=== PATIENT | male | born 1965 | race Caucasian/White ===

== ENCOUNTER 2020-05-09 10:10 | Inpatient (IN) | payer OTHER, SELFPAY ==
[~2020-05-09] VITALS: Ht 167.6 cm; Wt 81.6 kg
[2020-05-09 10:14] VITALS: BP 160/113
--- NOTE | 2020-05-09 10:35 | NUR ---
54 YO M BIB SELF C/O COUGH,SOB X 4 DAYS. DENIES FEVER, CP DENIES LOSS OF TASTE AND LOSS OF SMELL. NO OTHER SYMPTOMS REPORTED. COVID TESTED DONE YESTERTDAY WITH NEGATIVE RESULT. IN ED, AAOX4 WITH EVEN AND STEADY GAIT; LUNGS WITH COARSE BREATH SOUNDS BL; HR EVEN AND REGULAR; PATIENT STATES PAIN OF 0/10 AT THIS TIME; PATIENT POSITIONED FOR COMFORT; HOB ELEVATED; BEDRAILS UP X2; BED DOWN. ER MD MADE AWARE OF PT STATUS. PMH: DENIES NKA
--- NOTE | 2020-05-09 10:45 | NUR ---
URINE COLLECTED AT THIS TIME. HANDED TO NIMCO TAYLOR.
--- NOTE | 2020-05-09 11:16 | NUR ---
INF, RSV SWABS DONE. HANDED TO NIMCO TAYLOR.
--- NOTE | 2020-05-09 11:16 | NUR ---
AMOS BRANTLEY SWABS DONE. HANDED TO NIMCO TAYLOR.
[2020-05-09 11:18] LABS: BASOPHILS # (AUTO) 0.1 K/uL (0.00-0.22); BASOPHILS % (AUTO) 0.5 % (0.0-2.0); HEMATOCRIT 51.7 % (36-52); HEMOGLOBIN 17.5 g/dL (12.0-18.0); LYMPHOCYTES # (AUTO) 0.2 K/uL (2.0-11.5); LYMPHOCYTES % (AUTO) 1.2 % (20.5-51.1); MEAN CORPUSCULAR HEMOGLOBIN 31 pg (27-31); MEAN CORPUSCULAR HGB CONC 34 g/dL (33-37); MEAN CORPUSCULAR VOLUME 90.6 fL (80-94); MONOCYTES # (AUTO) 0.5 K/uL (0.8-1.0); MONOCYTES % (AUTO) 2.5 % (1.7-9.3); NEUTROPHILS # (AUTO) 19.6 K/uL (1.8-7.7); NEUTROPHILS % (AUTO) 95.8 % (42.2-75.2); PLATELET COUNT (AUTO) 207 K/uL (140-450); RED CELL DISTRIBUTION WIDTH 13.4 % (11.6-13.7); WHITE BLOOD COUNT (AUTO) 20.5 K/uL (4.8-10.8)
[2020-05-09 11:33] LABS: PROTHROMBIN TIME 10.4 secs (10.8-13.4)
[2020-05-09 11:34] LABS: RSV NEGATIVE (NEGATIVE)
[2020-05-09 11:36] LABS: BILIRUBIN,URINE NEGATIVE (NEGATIVE); BLOOD, URINE 2+ (NEGATIVE); COLOR,URINE YELLOW (YELLOW); LEUKOCYTE ESTERASE ,URINE NEGATIVE (NEGATIVE); NITRITE, URINE NEGATIVE (NEGATIVE); PH,URINE 5.5 (5.0-9.0); UGLUCOSE 3+ (NEGATIVE)
[2020-05-09 11:37] LABS: ALBUMIN 2.8 g/dL (3.4-5.0); ANION GAP 23.5 (8-16); CARBON DIOXIDE 19.3 mmol/L (21-32); CREATININE 1.3 mg/dL (0.6-1.3); POTASSIUM 3.8 mmol/L (3.5-5.1); TOTAL BILIRUBIN 0.6 mg/dL (0.0-1.0)
[2020-05-09 11:49] LABS: APPEARANCE,URINE SLIGHTLY HAZY (CLEAR)
[2020-05-09 11:50] LABS: LACTATE DEHYDROGENASE 361 U/L (85-227)
[2020-05-09 11:50] LABS: COARSE GRANULAR CASTS,URINE 0-10 /LPF (None Seen); RBC,URINE 0-5 /HPF (0-5); WBC,URINE 0-5 /HPF (0-5)
[2020-05-09 12:50] LABS: C-REACTIVE PROTEIN QUANT 32.3 mg/dL (0.0-0.9)
[2020-05-09] MEDS ORDERED: POTASSIUM CHLORIDE 10 MEQ TABER PO PRN (15:45)
[2020-05-09] MEDS ORDERED: ACETAMINOPHEN 325 MG TAB PO PRN (15:45)
[2020-05-09] MEDS ORDERED: DOCUSATE SODIUM 100 MG GELCAP PO PRN (15:45)
[2020-05-09] MEDS ORDERED: HYDROcodone/APAP 7.5/325 MG 1 TAB PO PRN (15:45)
[2020-05-09] MEDS ORDERED: ONDANSETRON 4 MG/2 ML VIAL IM/IVP PRN (15:45)
[2020-05-09] MEDS ORDERED: ALBUTEROL HFA MDI 90 MCG/ACTUATION 8 GM INH PRN (15:45)
[2020-05-09] MEDS ORDERED: cefTRIAXone 1,000 MG VIAL ONE (16:06)
[2020-05-09] MEDS: NACL 0.9% 1,000 ML IV SCH ×2 (16:19→23:24)
--- NOTE | 2020-05-09 19:12 | NUR ---
REPORT GIVEN TO SHANNAN AGGARWAL. TRANSFER OF CARE AT THIS TIME.
--- NOTE | 2020-05-09 19:15 | NUR ---
RECEIVED PATIENT AWAKE, AND ALERT WITHOUT COMPLAINTS. RESPIRATIONS ARE REGULAR AND UNLABORED.
--- NOTE | 2020-05-09 21:45 | NUR ---
REPORT TO PATRICIA, RN
--- NOTE | 2020-05-09 22:00 | NUR ---
Patient will be admitted to care of PATRICIA. Will go to room 106. Belongings list completed. Report to PATRICIA, RN
--- NOTE | 2020-05-09 22:05 | NUR ---
TO 106 VIA KRISTOPHER CARTER CM. DENIES C/O AT THIS TIME
[2020-05-09 22:10] VITALS: BP 147/97
--- NOTE | 2020-05-09 22:10 | NUR ---
ADMITTED A 54M FROM ER. CAME BY RAUL WITH O2 4L NC., SAT 95%, AWAKE , ALERT AND ORIENTED X4. ON TELE MONITOR -ST. NO C/O ANY DISCOMFORT NOR PAIN NOTED. NO SOB NOTED ALSO. HS HL ON THE RT FA G#22. SKIN INTACT. PLAN OF CARE DISCUSSED AND VERBALIZED UNDERSTANDING. FREQ ROUNDS. NEEDED. BED ON LOW POSITION. SIDE RAILS UP X2. CALL LIGHT AND URINAL WITHIN EASY REACH. WILL FOLLOW UP ADMITTING ORDERS AND CONTINUE TO MONITOR PT.
--- NOTE | 2020-05-09 23:52 | NUR ---
CALLED TO BEDSIDE DUE TO PT DESATURATING. PT SEEN AND ASSESSED. FOUND PT ON 5L NASAL CANNULA WIRH SPO2 OF 83%. SWITCHED TO OXYMIZER 6L WITH SPO2 OF 90%. ASSISTED PT INTO PRONE POSITION. PT IS TOLERATING WELL. WILL CONTINUE TO MONITOR PT.
[2020-05-10] VITALS (9 sets, daily range): BP systolic 96–146; BP diastolic 49–95
--- NOTE | 2020-05-10 00:30 | NUR ---
CHECKED ON PT. LYING PRONED WITH O2 SAT 91 %. WILL CONTINUE TO MONITOR.
--- NOTE | 2020-05-10 02:30 | NUR ---
CHECKED ON PT. ASLEEP. O2 SAT 89% - 90%. NO SOB NOTED.
--- NOTE | 2020-05-10 04:00 | NUR ---
PT IS SLEEP. NO RESPIRATORY DISTRESS NOTED. O2 SAT 91%.
--- NOTE | 2020-05-10 06:00 | NUR ---
PT IS LYING ON HIS BACK WITH O2 STILL 6L OXYMIZER. O2 SAT 92%.
--- NOTE | 2020-05-10 07:30 | NUR ---
ENDORSED PT IN STABLE CONDITION TO AM NURSE.
--- NOTE | 2020-05-10 07:31 | NUR ---
RECEIVED ENDORSEMENT FROM RETAIL AGENT, AWAKE, ALERT, ORIENTEDX3, IN PRONE POSITION, WITH O2 AT 6L/MIN VIA OXYMIZER, NOT IN DISTRESS NOTED. WITH ONGOING IV FLUID WITH 0.9%NS AT 60ML/HOUR INFUSING AT LEFT FOREARM G 22 IV CANNULA NOTED. SAFETY MEASURES IN PLACE AND CONTINUE MONITOR
[2020-05-10 07:43] LABS: ALBUMIN 2.6 g/dL (3.4-5.0); ANION GAP 29.6 (8-16); CARBON DIOXIDE 11.6 mmol/L (21-32); CREATININE 1.3 mg/dL (0.6-1.3); POTASSIUM 3.2 mmol/L (3.5-5.1); TOTAL BILIRUBIN 0.5 mg/dL (0.0-1.0)
--- NOTE | 2020-05-10 08:41 | NUR ---
PATIENT HAS BEEN SCREENED AND CATEGORIZED MODERATE NUTRITION RISK. PATIENT WILL BE SEEN WITHIN 3-5 DAYS OF ADMISSION. 05/12/20 05/14/[address]
[2020-05-10] MEDS: AZITHROMYCIN 250 MG TAB PO SCH (09:40)
[2020-05-10] MEDS: ZINC SULF 220 MG CAP PO SCH (09:40)
[2020-05-10] MEDS: ASCORBIC ACID 500 MG TAB PO SCH (09:40)
--- NOTE | 2020-05-10 09:48 | NUR ---
FULLY AWAKE AND ALERT, DUE MEDICATION GIVEN
--- NOTE | 2020-05-10 10:52 | NUR ---
FULLY AWAKE AND ALERT, NOT IN DISTRESS NOTED
[2020-05-10] MEDS ORDERED: NACL 0.9% 1,000 ML IV SCH (11:56)
--- NOTE | 2020-05-10 12:28 | NUR ---
SITTING BESIDE THE BED, VITAL SIGNA TAKEN AND RECORDED, NOT IN DISTRESS NOTED.
--- NOTE | 2020-05-10 14:28 | NUR ---
ASLEEP ON RIGHT SIDE LYING POSITION, NOT IN DISTRESS NOTED
--- NOTE | 2020-05-10 16:16 | NUR ---
SOCIAL WORK NOTE: Patient's Orientation Unable To Assess Information Provided By DESTINY BARBOSA - Comments SW WAS UNABLE TO MEET PATIENT AT BEDSIDE DUE TO MEDICAL CONDITION. SW COMPLETED ASSESSMENT WITH PATIENT'S . Community Liaison, Realtionship and Phone Number DESTINY GOODMAN [phone] Healthcare Power of Brine Room Laborer No Does Patient Have a POLST No Identifying Problems No Social Work Triggers Is A Social Work Consult Needed No Mandate Report Filed No Explanation Of Identifying Problems PATIENT IS A 54-YEAR-OLD MALE ADMITTED FOR SUSPECTED COVID, PNA, AND SEVERE HYPOXIA. PATIENT HAS NO HISTORY OF PMHX. PATIENT'S REPORTED THAT PATIENT HAS NO HISTORY OF MENTAL HEALTH OR SUBSTANCE ABUSE. Admitted From Home Pre-Admission Level Of Functioning Status Independent/Ambulatory Prior Resources/Services Used In Last 12 Months No Prior Resources Used Prior DME No Prior DME Used Dialysis Comments N/A Living Situation Lives With Family House Patient Had Caregiver No Home Support No Caregiver Issues Financial Issues No Known Financial Issue Referral To The Financial Counselor Needed No Factors/Needs No D/C Needs Identified Pt/Rep Participated In Discharge Plan Yes Patient/Family Agress With Discharge Plan Yes Discharge Plan Comments TENTATIVE DISCHARGE PLAN IS FOR PATIENT TO RETURN HOME. DC Plan Status Initiated
--- NOTE | 2020-05-10 17:09 | NUR ---
APPARENTLY O2SAT AT 70% AT 10L/MIN VIA OXYMIZER, RT INFORMED TO CHANGED AT NON REBREATHER MASK. PLACED ON PRONE POSITION, CONTINUE MONITOR
--- NOTE | 2020-05-10 18:03 | NUR ---
STILL DESATING AT 75-77%, DECREASED LOC NOTED, DR. BAY AND DR. RODRÍGUEZ [facility] INFORMED THRU TEXT MESSAGES.
--- NOTE | 2020-05-10 18:18 | NUR ---
PATIENT [id number]%, DECREASED LOC NOTED RESPONSIVE BY SHAKING. DR. RODRÍGUEZ CONTACTED, MADE AWARE WITH PATIENT STATUS, ACCORDING TO HIM IF WE DON'T HAVE AVAILABLE HIGH FLOW, ELECTIVE INTUBATION MUST DONE. RT HANNA AND SEO ASSOCIATE MS JANSEN MADE AWARE.
--- NOTE | 2020-05-10 18:22 | NUR ---
CRASH AT BEDSIDE, PATIENT DECREASED LOC NOTED. RT STARTED FOR HIGH FLOW METER AT 100%.
--- NOTE | 2020-05-10 19:05 | NUR ---
TRANSFERRED TO ROOM 130 A, ICU EXTENSION Addendum: 05/10/20 at 1951 by Shravan Rodriguez RN STILL O2SAT- 80% AT HIGH FLOW METER 100%
[2020-05-10] MEDS: PROPOFOL 1000 MG/100 ML PREMIX 100 ML IV PRN (19:45)
--- NOTE | 2020-05-10 19:45 | NUR ---
PT TRANSFERRED TO ICU OVERFLOW FROM [facility] @ THIS TIME. DR LEONARD AT BEDSIDE PERFORMING ORAL INTUBATION WITH RT. PT SEDATED. WILL FOLLOW-UP.
--- NOTE | 2020-05-10 19:45 | NUR ---
ENDORSED TO GLYCERIN SUPERVISOR FOR CONTINUITY OF CARE.
--- NOTE | 2020-05-10 19:50 | NUR ---
NEW ORDERS FOR SEDATION MEDS OBTAINED AND IMPLEMENTED, FROM DR MAGALLANES, AT THIS TIME. WILL FOLLOW UP
--- NOTE | 2020-05-10 19:50 | NUR ---
PT PLACED ON MECH VENT ACPC MODE: FIO2 100%, RATE 22, PEEP 12. PT TOLERATED INTUBATION WELL.
[2020-05-10] MEDS ORDERED: ETOMIDATE 20 MG/10 ML VIAL IVP SCH (19:55)
[2020-05-10] MEDS ORDERED: ROCURONIUM 50 MG/5 ML VIAL IV SCH (19:55)
[2020-05-10] MEDS ORDERED: PROPOFOL 1000 MG/100 ML PREMIX 100 ML IV ONE (20:04)
[2020-05-10] MEDS ORDERED: MORPHINE SULFATE 10 MG/ML VIAL ONE (23:48)
[2020-05-11] VITALS (26 sets, daily range): BP systolic 77–109; BP diastolic 42–64
--- NOTE | 2020-05-11 | NUR ---
OGT PLACED AT THIS TIME. + AIR BOLUS NOTED. CXR CONFIRMS PLACEMENT.
[2020-05-11] MEDS: MORPHINE SULFATE 50 MG in NACL 0.9% 45 ML IV PRN ×2 (00:11→20:52)
--- NOTE | 2020-05-11 02:00 | NUR ---
REPOSITIONED WITH PRESSURE AREAS OFFLOADED. FLACC 0. VAP ORAL CARE PROVIDED. SAFETY PRECAUTIONS IN PLACE WITH BED LOW AND LOCKED. WILL CONT TO MONITOR.
[2020-05-11] MEDS: PROPOFOL 1000 MG/100 ML PREMIX 100 ML IV PRN ×4 (02:06→22:55)
[2020-05-11] MEDS ORDERED: CRUSHER, PILL MC ONE (02:48)
[2020-05-11] MEDS ORDERED: MORPHINE SULFATE 10 MG/ML VIAL ONE ×2 (06:24→20:04)
[2020-05-11 06:53] LABS: HEMOGLOBIN 15.4 g/dL (12.0-18.0); MEAN CORPUSCULAR HEMOGLOBIN 31 pg (27-31); MEAN CORPUSCULAR HGB CONC 33 g/dL (33-37); MEAN CORPUSCULAR VOLUME 93.1 fL (80-94); PLATELET COUNT (AUTO) 292 K/uL (140-450); RED BLOOD CELL COUNT(AUTO) 5.05 MIL/uL (4.20-6.10); RED CELL DISTRIBUTION WIDTH 14.1 % (11.6-13.7)
--- NOTE | 2020-05-11 07:15 | NUR ---
PT REPORT GIVEN TO DAYSHIFT NURSE AT THIS TIME, AT WINDOW, FOR CONTINUITY OF CARE.
[2020-05-11 07:45] LABS: ALBUMIN 2.1 g/dL (3.4-5.0); ANION GAP 24.1 (8-16); CARBON DIOXIDE 14.5 mmol/L (21-32); CREATININE 3.7 mg/dL (0.6-1.3); POTASSIUM 3.6 mmol/L (3.5-5.1); TOTAL BILIRUBIN 0.8 mg/dL (0.0-1.0)
--- NOTE | 2020-05-11 07:55 | NUR ---
FNS CONSULT FOR TUBE FEEDING RECEIVED ON 05/11/20 @7:30 AM. PATIENT IS RESCREENED AND NUTRITION RISK CRITERIA IS NOW CHANGED TO HIGH RISK. RD WILL ASSESS PT TODAY 05/11/20.
--- NOTE | 2020-05-11 08:00 | NUR ---
RECEIVED PT REPORT FROM NIGHTSHIFT NURSE. PT SEDATED TO RASS -3. PUPILS 3MM, PERRL. ETT TO VENT. A/C VC FIO2: 100%, TV: 450, RATE: 20, PEEP: 10. LUNGS DIMINISHED UPPER AND LOWER BILATERALLY. S1S2 NOTED UPON AUSCULTATION. OG-TUBE IN PLACE, RESIDUAL: 0ML. BOWEL SOUNDS ACTIVE IN ALL 4 QUADRANTS. ABD SOFT, NON-DISTENDED. ARGUELLO DRAINING TO GRAVITY, CLEAR/YELLOW-URINE NOTED. RT FA PERIPHERAL IV INFUSING MORPHINE 4MG/HR (4ML/HR) AND PROPOFOL (16.17ML/HR). LT AC PERIPHERAL IV SALINE LOCK. SKIN WARM, DRY AND INTACT. SAFETY PRECAUTIONS IN PLACE, BED LOW AND LOCKED, SIDE RAILS UP, HOB @ 30 DEGREES. WILL CONT TO MONITOR CLOSELY.
[2020-05-11 08:07] LABS: T4 (THYROXINE) 6.7 ug/dL (4.5-12.0)
[2020-05-11 08:29] LABS: WHITE BLOOD COUNT (AUTO) 29.2 K/uL (4.8-10.8)
[2020-05-11 08:30] LABS: LYMPHOCYTES % (MANUAL) 1 % (20-46); MONOCYTES % (MANUAL) 2 % (5-12)
--- NOTE | 2020-05-11 08:35 | NUR ---
05/11/20 RD F/U COMPLETED PLEASE REFER TO NUTRITION PROGRESS NOTES UNDER CARE ACTIVITY FOR ESTIMATED NUTRITIONAL NEEDS. RD RECOMMENDATIONS: 1. CONTINUE PUREE DIET TOLERATED 2. CONTINUE ENSURE MAX TID 3. RECOMMEND VITAMIN C AND ZINC SUPPLEMENTATION FOR WOUND HEALING 4. PROVIDE ASSISTANCE WITH MEALS 5. RD TO FOLLOW-UP 2-3 DAYS, HIGH RISK JOSE NEWTON MBA, IVORY Addendum: 05/11/20 at [address] NOTE CANCELLED. ABOVE NOTE IS FOR ANOTHER PATIENT. NEED TO BE DELETED. THIS PATIENT CHELSEY SOTO WILL BE REASSESSED BY RD FOR TUBE FEEDING TODAY 05/11/20
--- NOTE | 2020-05-11 08:45 | NUR ---
RECEIVE CRITICAL LAB FOR GLUCOSE 722, BUN 74, CR 3.7, DR MAGALLANES NOTIFIED AND PER DR MAGALLANES, HE WILL TAKE A LOOK AND INPUT ORDERS HIMSELF. WBC 29.2, DR GOODMAN WAS NOTIFIED AND PER DR GOODMAN, HE WILL COME TO ROUND ON PATIENT AND INPUT ORDER HIMSELF.
[2020-05-11] MEDS: NACL 0.9% 1,000 ML IV SCH ×2 (08:50→14:52)
[2020-05-11] MEDS ORDERED: NACL 0.9% 2,000 ML IV SCH (08:54)
[2020-05-11] MEDS: ASCORBIC ACID 500 MG TAB PO SCH (09:00)
[2020-05-11] MEDS: ZINC SULF 220 MG CAP PO SCH (09:00)
[2020-05-11] MEDS: AZITHROMYCIN 250 MG TAB PO SCH (09:00)
[2020-05-11 09:20] LABS: MAGNESIUM 2.9 mg/dL (1.8-2.4); PHOSPHORUS 5.9 mg/dL (2.5-4.9)
[2020-05-11] MEDS ORDERED: INSULIN LISPRO SLIDING SCALE 100 UNITS/ML VIAL SUBQ PRN (10:35)
[2020-05-11] MEDS ORDERED: DEXTROSE 50% 50 ML SYR IVP PRN ×2 (10:35→14:30)
[2020-05-11] MEDS ORDERED: BLOOD GLUCOSE MONITORING 1 DEV DEV FS SCH (12:00)
--- NOTE | 2020-05-11 12:00 | NUR ---
PT HAD A 100.9 FEVER, COOLING MEASURES IN PLACE, REMOVED BLANKET AND ICE PACKS APPLIED. WILL CONTINUE TO MONITOR.
--- NOTE | 2020-05-11 12:30 | NUR ---
PTS TEMP IS 99.1, WILL CONTINUE COOLING MEASURES AND WILL CONTINUE TO MONITOR CLOSELY.
--- NOTE | 2020-05-11 13:18 | NUR ---
05/11/20 RD INITIAL ASSESSMENT COMPLETED PLEASE REFER TO NUTRITION ASSESSMENT UNDER CARE ACTIVITY FOR ESTIMATED NUTRITIONAL NEEDS. 1.RECOMMEND GLUCERNA 1.2 @ 65 ML/HR X 24 HR. START AT 10 ML/HR, INCREASE BY 10 Q4H -THIS WILL PROVIDE 1560 ML OF VOLUME, 1872 KCAL AND 93 GM OF PROTEIN, MEETING 100% OF ESTIMATED KCAL AND PROTEIN NEEDS. 2. RECOMMEND FREE WATER FLUSH OF [address] TO FOLLOW-UP 2-3 DAYS, HIGH RISK BILL HA RD
[2020-05-11] MEDS: BLOOD GLUCOSE MONITORING 1 DEV DEV FS SCH ×9 (14:30→23:04)
[2020-05-11] MEDS ORDERED: POTASSIUM CHLORIDE 40 MEQ, LIDOCAINE MPF 1% 25 MG in NACL 0.9% 250 ML IV PRN ×6 (14:30)
[2020-05-11] MEDS ORDERED: DEXT 5% / NACL 0.45% 1,000 ML IV SCH (14:30)
[2020-05-11] MEDS ORDERED: INSULIN REGULAR, HUMAN 100 UNIT/ML VIAL IVP SCH (14:33)
--- NOTE | 2020-05-11 15:09 | NUR ---
COVID RESULTS RECEIVED FROM LAB. RESULTS= POSITIVE.
[2020-05-11] MEDS: INSULIN REGULAR, HUMAN 100 UNIT in NACL 0.9% 100 ML IV SCH ×4 (15:48→23:04)
--- NOTE | 2020-05-11 16:00 | NUR ---
PTS LATEST TEMP, 100.1F. COOLING MEASURES STILL IN PLACE, WILL CONTINUE TO MONITOR CLOSELY.
[2020-05-11 17:42] LABS: MAGNESIUM 2.9 mg/dL (1.8-2.4)
[2020-05-11 17:43] LABS: ANION GAP 19.4 (8-16); POTASSIUM 3.4 mmol/L (3.5-5.1)
[2020-05-11 17:47] LABS: CREATININE 5.7 mg/dL (0.6-1.3)
--- NOTE | 2020-05-11 18:40 | NUR ---
DR BAY ON UNITMD OBTAINED CONSENT FROM FAMILY FOR HD CATHETER PLACEMENT. 2 RNs VERIFIED. Addendum: 05/11/20 at 2138 by Michelle Young RN RN IT WAS DR SHIRLEY ON UNIT AND OBTAINED CONSENT.
--- NOTE | 2020-05-11 19:00 | NUR ---
DR SHIRLEY AT BEDSIDE, FOR HD CATHETER PLACEMENT.
--- NOTE | 2020-05-11 19:30 | NUR ---
RECEIVED PT REPORT FROM DAYSHIFT NURSE, AT [facility], FOR CONTINUITY OF CARE. PT SEDATED TO RASS -3, PER MD ORDERS. PUPILS 3MM, PERRL. ETT TO VENT. LUNGS DIMINISHED THROUGHOUT. +S1, S2 UPON AUSCULTATION. OGT IN PLACE, PLACEMENT CONFIRMED WITH AIR BOLUS. BOWEL SOUNDS ACTIVE X4. ABD SOFT, NON-DISTENDED. ARGUELLO IN PLACE WITH CLEAR, YELLOW-URINE NOTED TO BAG. SALINE-LOCKED PERIPHERAL IV TO RFA INFUSING MORPHINE AND PROPOFOL. LT AC PERIPHERAL SALINE LOCKED IV INFUSING INSULIN DRIP, PER PROTOCOL. SKIN WARM, DRY AND INTACT. SAFETY PRECAUTIONS IN PLACE WITH BED LOW AND LOCKED. HOB >30 DEGREES. WILL CONT TO MONITOR CLOSELY.
[2020-05-11] MEDS: PIPERACILLIN/TAZOBACTAM 2.25 GM in DEXTROSE 5% 50 ML IV SCH (20:28)
[2020-05-11 21:07] LABS: MAGNESIUM 2.9 mg/dL (1.8-2.4); PHOSPHORUS 4.9 mg/dL (2.5-4.9)
[2020-05-11 21:09] LABS: ANION GAP 18.9 (8-16); CARBON DIOXIDE 17.6 mmol/L (21-32); POTASSIUM 3.5 mmol/L (3.5-5.1)
[2020-05-11 21:12] LABS: CREATININE 6.1 mg/dL (0.6-1.3)
[2020-05-12] VITALS (32 sets, daily range): BP systolic 86–126; BP diastolic 46–84
[2020-05-12] MEDS: MORPHINE SULFATE 50 MG in NACL 0.9% 45 ML IV PRN ×2 (00:09→18:41)
[2020-05-12] MEDS: NACL 0.9% 1,000 ML IV SCH ×4 (00:12→21:14)
[2020-05-12] MEDS: BLOOD GLUCOSE MONITORING 1 DEV DEV FS SCH ×11 (00:30→21:15)
[2020-05-12 00:56] LABS: ANION GAP 19.1 (8-16); CARBON DIOXIDE 21.1 mmol/L (21-32); POTASSIUM 3.2 mmol/L (3.5-5.1)
[2020-05-12 00:57] LABS: MAGNESIUM 2.3 mg/dL (1.8-2.4); PHOSPHORUS 4.6 mg/dL (2.5-4.9)
[2020-05-12] MEDS: NOREPINEPHRINE 4 MG in DEXTROSE 5% 250 ML IV PRN ×2 (01:37→19:01)
[2020-05-12 02:17] LABS: CREATININE 4.4 mg/dL (0.6-1.3)
--- NOTE | 2020-05-12 03:53 | NUR ---
CALLED [facility] R/T POTASSIUM 3.2. CURRENT ORDER FOR POTASSIUM WITH XYLOCAINE UNAVAILABLE. NO ANSWER AT THIS THIS TIME. AUDIOLOGY TECHNICIAN MADE AWARE.
[2020-05-12] MEDS: PIPERACILLIN/TAZOBACTAM 2.25 GM in DEXTROSE 5% 50 ML IV SCH ×3 (04:24→20:51)
[2020-05-12 04:47] LABS: PHOSPHORUS 4.7 mg/dL (2.5-4.9)
[2020-05-12 04:54] LABS: ALBUMIN 1.7 g/dL (3.4-5.0); ANION GAP 12.1 (8-16); CARBON DIOXIDE 26.5 mmol/L (21-32); TOTAL BILIRUBIN 0.9 mg/dL (0.0-1.0)
[2020-05-12 04:58] LABS: CREATININE 4.3 mg/dL (0.6-1.3); POTASSIUM 2.6 mmol/L (3.5-5.1)
[2020-05-12] MEDS ORDERED: KCL 20 MEQ/WATER INJ PREMIX 200 ML IV ONE (05:10)
--- NOTE | 2020-05-12 07:20 | NUR ---
PT REPORT GIVEN TO DAYSHIFT RN, AT WINDOW, FOR CONTINUITY OF CARE.
[2020-05-12] MEDS ORDERED: KCL 20 MEQ/WATER INJ PREMIX 200 ML IV SCH (07:40)
--- NOTE | 2020-05-12 08:00 | NUR ---
RECEIVED PT REPORT FROM NIGHTSHIFT NURSE. PT SEDATED TO RASS -3. ETT TO VENT. A/C VC FIO2: 85%, TV: 450, RATE: 24, PEEP: 8. LUNGS DIMINISHED UPPER AND LOWER BILATERALLY. S1S2 NOTED UPON AUSCULTATION. OG-TUBE IN PLACE, RESIDUAL: 0ML. BOWEL SOUNDS ACTIVE IN ALL 4 QUADRANTS. ABD SOFT, NON-DISTENDED. ARGUELLO DRAINING TO GRAVITY, CLEAR/YELLOW-URINE NOTED. RT FA PERIPHERAL IV INFUSING MORPHINE 4MG/HR (4ML/HR) AND PROPOFOL (16.17ML/HR), LEVOPHED 3 MCG/MIN (11.25 ML/HR). LT AC PERIPHERAL IV RUNNING IVF @250ML/HR AND INSULIN 7.33 UNIT/HR. SKIN WARM, DRY AND INTACT. SAFETY PRECAUTIONS IN PLACE, BED LOW AND LOCKED, SIDE RAILS UP, HOB @ 30 DEGREES. WILL CONT TO MONITOR CLOSELY.
[2020-05-12 08:49] LABS: MAGNESIUM 2.2 mg/dL (1.8-2.4); PHOSPHORUS 5.3 mg/dL (2.5-4.9)
[2020-05-12 08:54] LABS: CARBON DIOXIDE 23.4 mmol/L (21-32); POTASSIUM 4.4 mmol/L (3.5-5.1)
[2020-05-12] MEDS: ASCORBIC ACID 500 MG TAB PO SCH (09:00)
[2020-05-12] MEDS: ZINC SULF 220 MG CAP PO SCH (09:00)
[2020-05-12] MEDS: AZITHROMYCIN 250 MG TAB PO SCH (09:00)
[2020-05-12 09:21] LABS: CREATININE 4.6 mg/dL (0.6-1.3)
--- NOTE | 2020-05-12 10:06 | NUR ---
DR ROUSE CALLED BACK REFERRING TO THE CRITICAL LABS: BUN: 72, CREAT: 4.6. AWARE, PT IS GETTING HD, AND NO NEW ORDERS AT THIS TIME.
--- NOTE | 2020-05-12 10:32 | NUR ---
DR MAGALLANES ON THE UNIT, PER , STOP INSULIN DRIP. WILL PUT NEW ORDERS IN.
[2020-05-12] MEDS: PROPOFOL 1000 MG/100 ML PREMIX 100 ML IV PRN ×2 (10:48→22:10)
--- NOTE | 2020-05-12 10:48 | NUR ---
PROVIDED 10,000 UNITS TO DIALYSIS [facility], FOR HD TO FLUSH PORTS.
--- NOTE | 2020-05-12 10:54 | NUR ---
FOLLOW UP WITH PICC PLACEMENT WITH CALL CENTER, MELVIN IS THE PICC RN FOR BRUCE TODAY. PER CALL CENTER, MELVIN WILL CALL BACK. PROVIDED A DIRECT CALL BACK PHONE NUMBER, AWAITING FOR MELVIN TO RETURN CALL.
--- NOTE | 2020-05-12 12:00 | NUR ---
PER RN WALTER, DIALYSIS: 2L OUTPUT
[2020-05-12 15:07] LABS: MAGNESIUM 1.7 mg/dL (1.8-2.4)
--- NOTE | 2020-05-12 15:15 | NUR ---
HEPARIN SUBCU HELD DUE TO PICC LINE PLACEMENT
[2020-05-12] MEDS: INSULIN LISPRO SLIDING SCALE 100 UNITS/ML VIAL SUBQ PRN ×2 (16:30→21:18)
[2020-05-12 16:35] LABS: ANION GAP 13.6 (8-16); CARBON DIOXIDE 26.7 mmol/L (21-32); CREATININE 3.9 mg/dL (0.6-1.3); POTASSIUM 3.3 mmol/L (3.5-5.1)
[2020-05-12 17:03] LABS: MAGNESIUM 1.8 mg/dL (1.8-2.4); PHOSPHORUS 4.4 mg/dL (2.5-4.9)
--- NOTE | 2020-05-12 17:27 | NUR ---
RD RECOMMENDATIONS FOR NEPRO 1.8 @ 40 ML/HR WITH FLUSH OF 130 ML Q4H
[2020-05-12] MEDS: INSULIN LANTUS 100 UNITS/ML 10 ML VIAL SUBQ SCH (18:05)
--- NOTE | 2020-05-12 19:10 | NUR ---
RECEIVED PATIENT FROM DAY SHIFT ON AC 24,450, PEEP 8,85%. VENT PLUGGED INTO RED OUTLET. BMV AT BEDSIDE. ETT SECURED. ALARMS SET. ETT SHIFTED ON ANKORFAST. NO RESPIRATORY DISTRESS NOTED. WILL CONTINUE TO MONITOR FOR CHANGES IN RESPIRATORY STATUS.
--- NOTE | 2020-05-12 19:45 | NUR ---
RECEIVED ENDORSEMENT FROM DAY SHIFT RN. PT SEDATED TO RASS -3. ETT TO VENT. A/C VC FIO2: 80%, TV: 450, RATE: 24, PEEP: 8. LUNGS DIMINISHED UPPER AND LOWER BILATERALLY. OG-TUBE IN PLACE. BOWEL SOUNDS ACTIVE IN ALL 4 QUADRANTS. ABD SOFT, NON-DISTENDED. ARGUELLO DRAINING TO GRAVITY, CLEAR/YELLOW-URINE NOTED. RT FA PERIPHERAL IV INFUSING MORPHINE, PROPOFOL, LEVOPHED. LT AC PERIPHERAL IV RUNNING IVF SKIN WARM, DRY AND INTACT. SAFETY PRECAUTIONS IN PLACE, BED LOW AND LOCKED, SIDE RAILS UP, HOB @ 30 DEGREES. WILL CONT TO MONITOR CLOSELY.
[2020-05-13] VITALS (27 sets, daily range): BP systolic 81–122; BP diastolic 51–74
[2020-05-13] MEDS: PIPERACILLIN/TAZOBACTAM 2.25 GM in DEXTROSE 5% 50 ML IV SCH ×5 (00:26→23:26)
[2020-05-13] MEDS: NACL 0.9% 1,000 ML IV SCH ×3 (06:00→21:27)
[2020-05-13] MEDS: BLOOD GLUCOSE MONITORING 1 DEV DEV FS SCH ×4 (06:35→21:09)
[2020-05-13] MEDS: INSULIN LISPRO SLIDING SCALE 100 UNITS/ML VIAL SUBQ PRN ×4 (06:36→21:13)
[2020-05-13 07:03] LABS: BASOPHILS % (AUTO) 0.2 % (0.0-2.0); HEMATOCRIT 38.1 % (36-52); HEMOGLOBIN 13.1 g/dL (12.0-18.0); LYMPHOCYTES # (AUTO) 0.2 K/uL (2.0-11.5); LYMPHOCYTES % (AUTO) 1.2 % (20.5-51.1); MEAN CORPUSCULAR HEMOGLOBIN 30 pg (27-31); MEAN CORPUSCULAR HGB CONC 34 g/dL (33-37); MEAN CORPUSCULAR VOLUME 88.4 fL (80-94); MONOCYTES # (AUTO) 0.7 K/uL (0.8-1.0); MONOCYTES % (AUTO) 4.3 % (1.7-9.3); NEUTROPHILS # (AUTO) 15.2 K/uL (1.8-7.7); NEUTROPHILS % (AUTO) 94.3 % (42.2-75.2); PLATELET COUNT (AUTO) 238 K/uL (140-450); RED BLOOD CELL COUNT(AUTO) 4.31 MIL/uL (4.20-6.10); RED CELL DISTRIBUTION WIDTH 13.7 % (11.6-13.7); WHITE BLOOD COUNT (AUTO) 16.2 K/uL (4.8-10.8)
[2020-05-13 07:37] LABS: ANION GAP 19.7 (8-16); POTASSIUM 3.7 mmol/L (3.5-5.1)
--- NOTE | 2020-05-13 07:41 | NUR ---
ENDORSED TO DAY SHIFT RN FOR CONTINUITY OF CARE
--- NOTE | 2020-05-13 07:55 | NUR ---
RECEIVED CRITICAL LAB BUN: [address] ZAZUETA. LENS GRINDER CALLED BACK, MD IS AWARE AND NO NEW ORDERS AT THIS TIME.
[2020-05-13 08:00] LABS: CREATININE 5.4 mg/dL (0.6-1.3)
--- NOTE | 2020-05-13 08:00 | NUR ---
RECEIVED PT REPORT FROM NIGHTSHIFT NURSE. PT SEDATED TO RASS -3. ETT TO VENT. A/C VC FIO2: 85%, TV: 450, RATE: 24, PEEP: 8. LUNGS DIMINISHED UPPER AND LOWER BILATERALLY. S1S2 NOTED UPON AUSCULTATION. OG-TUBE IN PLACE, RESIDUAL: 0ML. BOWEL SOUNDS ACTIVE IN ALL 4 QUADRANTS. ABD SOFT, NON-DISTENDED. ARGUELLO DRAINING TO GRAVITY, CLEAR/YELLOW-URINE NOTED. RT FA PERIPHERAL IV INFUSING MORPHINE 4MG/HR (4ML/HR) AND PROPOFOL 25 MCG/KG/MIN (11.55 ML/HR), LEVOPHED 4 MCG/MIN (15 ML/HR). LT AC PERIPHERAL IV RUNNING IVF @100ML/HR. BILATERAL ARMS HAS SCATTERED BRUISING, SKIN WARM, DRY AND INTACT. SAFETY PRECAUTIONS IN PLACE, BED LOW AND LOCKED, SIDE RAILS UP, HOB @ 30 DEGREES. WILL CONT TO MONITOR CLOSELY.
[2020-05-13] MEDS: INSULIN LANTUS 100 UNITS/ML 10 ML VIAL SUBQ SCH (09:00)
[2020-05-13] MEDS: ZINC SULF 220 MG CAP PO SCH (10:07)
[2020-05-13] MEDS: AZITHROMYCIN 250 MG TAB PO SCH (10:07)
[2020-05-13] MEDS: ASCORBIC ACID 500 MG TAB PO SCH (10:08)
--- NOTE | 2020-05-13 12:00 | NUR ---
NO S/S OF DISTRESS NOTED, SAFETY MEASURES IN PLACE WILL CONT. TO MONITOR.
[2020-05-13] MEDS: NOREPINEPHRINE 4 MG in DEXTROSE 5% 250 ML IV PRN (12:11)
--- NOTE | 2020-05-13 13:30 | NUR ---
STARTED PT ON NEPRO 1.8 @ 10ML/HR, GOAL RATE 40ML/HR. FWF: 130ML Q 4HR. >200 ML: HOLD. AND <150 RESUME FEEDING. Addendum: 05/13/20 at 2100 by Michelle Young RN RN AUSCULTATED AND RESIDUAL 0ML PRIOR TO INITIATING OG-TUBE FEEDING.
[2020-05-13] MEDS: PROPOFOL 1000 MG/100 ML PREMIX 100 ML IV PRN (14:40)
--- NOTE | 2020-05-13 16:00 | NUR ---
ROUTINE CLEANING, CHG BATH, ARGUELLO CARE, VAP ORAL CARE. SAFETY MEASURES IN PLACE, WILL CONT. TO MONITOR.
--- NOTE | 2020-05-13 19:30 | NUR ---
RECEIVED ENDORSEDMENT FROM DAY SHIFT RN. PT SEDATED TO RASS -3. ETT TO VENT. A/C VC FIO2: 85%, TV: 450, RATE: 24, PEEP: 8. LUNGS DIMINISHED UPPER AND LOWER BILATERALLY. OG-TUBE IN PLACE. BOWEL SOUNDS ACTIVE IN ALL 4 QUADRANTS. ABD SOFT, NON-DISTENDED. ARGUELLO DRAINING TO GRAVITY, CLEAR/YELLOW-URINE NOTED. RT FA PERIPHERAL IV INFUSING MORPHINE, PROPOFOL, LEVOPHED. LAC PERIPHERAL IV RUNNING IVF, SKIN WARM, DRY AND INTACT. SAFETY PRECAUTIONS IN PLACE, BED LOW AND LOCKED, SIDE RAILS UP, HOB @ 30 DEGREES. WILL CONTINUE TO MONITOR
[2020-05-13] MEDS: MORPHINE SULFATE 50 MG in NACL 0.9% 45 ML IV PRN (21:36)
[2020-05-14] VITALS (28 sets, daily range): BP systolic 92–116; BP diastolic 39–68
[2020-05-14] MEDS: PROPOFOL 1000 MG/100 ML PREMIX 100 ML IV PRN ×3 (00:06→17:22)
[2020-05-14] MEDS: PIPERACILLIN/TAZOBACTAM 2.25 GM in DEXTROSE 5% 50 ML IV SCH ×4 (05:26→23:00)
[2020-05-14] MEDS: NOREPINEPHRINE 4 MG in DEXTROSE 5% 250 ML IV PRN ×2 (05:28→22:22)
[2020-05-14 07:00] LABS: BASOPHILS # (AUTO) 0.1 K/uL (0.00-0.22); BASOPHILS % (AUTO) 1.1 % (0.0-2.0); HEMATOCRIT 44.5 % (36-52); HEMOGLOBIN 15.2 g/dL (12.0-18.0); LYMPHOCYTES # (AUTO) 0.2 K/uL (2.0-11.5); MEAN CORPUSCULAR HEMOGLOBIN 31 pg (27-31); MEAN CORPUSCULAR HGB CONC 34 g/dL (33-37); MEAN CORPUSCULAR VOLUME 89.3 fL (80-94); MONOCYTES # (AUTO) 0.5 K/uL (0.8-1.0); MONOCYTES % (AUTO) 4.4 % (1.7-9.3); NEUTROPHILS # (AUTO) 11.2 K/uL (1.8-7.7); PLATELET COUNT (AUTO) 236 K/uL (140-450); RED BLOOD CELL COUNT(AUTO) 4.99 MIL/uL (4.20-6.10); RED CELL DISTRIBUTION WIDTH 13.9 % (11.6-13.7)
[2020-05-14 07:21] LABS: ANION GAP 21.2 (8-16); CARBON DIOXIDE 19.7 mmol/L (21-32); POTASSIUM 3.9 mmol/L (3.5-5.1)
--- NOTE | 2020-05-14 07:34 | NUR ---
ENDORSED TO DAY SHIFT RN FOR CONTINUITY OF CARE
--- NOTE | 2020-05-14 07:35 | NUR ---
RECEIVED ENDORSEMENT FROM TANNERY WORKER RN AT BEDSIDE FOR CONTINUITY OF CARE. PT SEDATED TO RASS -3. ETT TO VENT. A/C VC FIO2: 85%, TV: 450, RATE: 24, PEEP: 8. LUNGS DIMINISHED UPPER AND LOWER BILATERALLY. OG-TUBE IN PLACE. BOWEL SOUNDS ACTIVE IN ALL 4 QUADRANTS. ABD SOFT, NON-DISTENDED. ARGUELLO DRAINING TO GRAVITY, SCANT CLEAR/YELLOW-URINE NOTED. RT FA PERIPHERAL IV INFUSING MORPHINE, PROPOFOL, LEVOPHED. LAC PERIPHERAL IV RUNNING IVF, SKIN WARM, DRY AND INTACT. SAFETY PRECAUTIONS IN PLACE, BED LOW AND LOCKED, SIDE RAILS UP, HOB @ 30 DEGREES. WILL CONTINUE TO MONITOR PATIENT.
[2020-05-14 07:40] LABS: CREATININE 7.1 mg/dL (0.6-1.3)
[2020-05-14 08:07] LABS: LYMPHOCYTES % (AUTO) 1.7 % (20.5-51.1); NEUTROPHILS % (AUTO) 92.8 % (42.2-75.2)
[2020-05-14] MEDS: BLOOD GLUCOSE MONITORING 1 DEV DEV FS SCH ×4 (08:30→21:29)
[2020-05-14] MEDS: ZINC SULF 220 MG CAP PO SCH (08:55)
[2020-05-14] MEDS: AZITHROMYCIN 250 MG TAB PO SCH (08:55)
[2020-05-14] MEDS: ASCORBIC ACID 500 MG TAB PO SCH (08:55)
[2020-05-14] MEDS: INSULIN LANTUS 100 UNITS/ML 10 ML VIAL SUBQ SCH (09:01)
[2020-05-14] MEDS: INSULIN LISPRO SLIDING SCALE 100 UNITS/ML VIAL SUBQ PRN ×4 (09:02→21:30)
--- NOTE | 2020-05-14 12:14 | NUR ---
05/14/20 RD FOLLOW UP COMPLETED PLEASE REFER TO NUTRITION PROGRESS NOTE UNDER CARE ACTIVITY FOR ESTIMATED NUTRITIONAL NEEDS. 1. RECOMMEND TO INCREASE NEPRO @ 45 ML/HR X 24 HR. START AT 10 ML/HR, INCREASE BY 10 Q4H -THIS WILL PROVIDE 1080 ML OF VOLUME, 1944 KCAL AND 87 GM OF PROTEIN, MEETING 100% OF ESTIMATED KCAL AND PROTEIN NEEDS. 2. RECOMMEND FREE WATER FLUSH OF [address] TO FOLLOW-UP 2-3 DAYS, HIGH RISK DIAMOND PRUITT RD
--- NOTE | 2020-05-14 13:52 | NUR ---
PATIENT'S SON SAVANAH CALLED, PT'S SPOUSE WAS ON THE LINE, UPDATED THEM ON PATIENT'S CONDITION. THEY VERBALIZED UNDERSTANDING.
[2020-05-14] MEDS: MORPHINE SULFATE 50 MG in NACL 0.9% 45 ML IV PRN ×2 (17:42→18:09)
--- NOTE | 2020-05-14 19:30 | NUR ---
RECEIVED PT ON SETTING AC 450, R 24, PEEP 8,FIO2 90%, FLOW 40. VENTILATOR PLUGGED INTO THE RED OUTLET TOLERATING WELL WITHOUT ANY ADVERSE REACTION NOTED. INTUBATED WITH ETT 7.5 SECURED WITH ANCHOR FAST @ 23 @ LIP. ALARM SET AUDIBLE AMBU BAG AT BEDSIDE. PT HAS GOOD CHEST RISE AND FALL, AIRWAY PATENT. WILL CONTINUE TO MONITOR.
--- NOTE | 2020-05-14 19:40 | NUR ---
GAVE REPORT TO TAB CARD PRESS OPERATOR NURSE AT BEDSIDE FOR CONTINUITY OF CARE.
--- NOTE | 2020-05-14 19:45 | NUR ---
RECEIVED ENDORSEMENT FROM DAY SHIFT RN PT SEDATED TO RASS -3. ETT TO VENT. A/C VC FIO2 90% TV 450 RATE 24 PEEP: 8. LUNGS DIMINISHED BILATERALLY. OG-TUBE IN PLACE. BOWEL SOUNDS ACTIVE. ABD SOFT, NON-DISTENDED. ARGUELLO DRAINING TO GRAVITY, SCANT CLEAR/YELLOW-URINE. NEREIDA PICC INFUSING MORPHINE, PROPOFOL AND LEVOPHED. LAC PERIPHERAL IV RUNNING IVF, SKIN WARM, DRY AND INTACT. PT SHOWING NO SIGNS OF ACUTE DISTRESS, SAFETY MEASURES IN PLACE, BED LOW AND LOCKED, SIDE RAILS UP, HOB @ 30 DEGREES. WILL CONTINUE TO MONITOR.
[2020-05-15] VITALS (29 sets, daily range): BP systolic 98–120; BP diastolic 60–74
[2020-05-15] MEDS: PROPOFOL 1000 MG/100 ML PREMIX 100 ML IV PRN ×4 (01:53→20:08)
[2020-05-15] MEDS: PIPERACILLIN/TAZOBACTAM 2.25 GM in DEXTROSE 5% 50 ML IV SCH ×4 (05:01→23:14)
[2020-05-15] MEDS: BLOOD GLUCOSE MONITORING 1 DEV DEV FS SCH ×4 (06:30→20:23)
[2020-05-15] MEDS: INSULIN LISPRO SLIDING SCALE 100 UNITS/ML VIAL SUBQ PRN ×5 (06:31→20:31)
[2020-05-15 06:37] LABS: BASOPHILS # (AUTO) 0.1 K/uL (0.00-0.22); BASOPHILS % (AUTO) 0.8 % (0.0-2.0); EOSINOPHILS % (AUTO) 0.1 % (0.0-4.0); HEMATOCRIT 38.6 % (36-52); HEMOGLOBIN 13.2 g/dL (12.0-18.0); LYMPHOCYTES # (AUTO) 0.2 K/uL (2.0-11.5); LYMPHOCYTES % (AUTO) 1.5 % (20.5-51.1); MEAN CORPUSCULAR HEMOGLOBIN 30 pg (27-31); MEAN CORPUSCULAR HGB CONC 34 g/dL (33-37); MEAN CORPUSCULAR VOLUME 88.4 fL (80-94); MONOCYTES # (AUTO) 0.3 K/uL (0.8-1.0); MONOCYTES % (AUTO) 2.5 % (1.7-9.3); NEUTROPHILS # (AUTO) 13.4 K/uL (1.8-7.7); NEUTROPHILS % (AUTO) 95.1 % (42.2-75.2); PLATELET COUNT (AUTO) 237 K/uL (140-450); RED BLOOD CELL COUNT(AUTO) 4.36 MIL/uL (4.20-6.10); RED CELL DISTRIBUTION WIDTH 13.9 % (11.6-13.7)
[2020-05-15 06:52] LABS: ANION GAP 16.8 (8-16); CARBON DIOXIDE 24.6 mmol/L (21-32); POTASSIUM 3.4 mmol/L (3.5-5.1)
[2020-05-15 07:19] LABS: CREATININE 6.8 mg/dL (0.6-1.3)
--- NOTE | 2020-05-15 07:36 | NUR ---
ENDORSED TO DAY SHIFT RN FOR CONTINUITY OF CARE
--- NOTE | 2020-05-15 08:04 | NUR ---
CRITICAL LAB FOR GLUCOSE 408, ANION GAP 16.8, NOTIFIED DR MAGALLANES.
--- NOTE | 2020-05-15 08:05 | NUR ---
RECEIVED CRITICAL LAB FOR CA 7.8, BUN 87, CR 6.8, PAGED MR, QUARTZ MOUNTER FOR BRUCE IS DR MCCALL, AWAITING FOR DR MCCALL TO RETURN CALL.
--- NOTE | 2020-05-15 08:10 | NUR ---
RECEIVED A CALL BACK FROM DR MCCALL, DR MCCALL WAS AWARE OF CRITICAL LABS, NO ORDER RECEIVED AT THIS TIME.
--- NOTE | 2020-05-15 08:14 | NUR ---
BLOOD GLUCOSE 408 FROM AM LAB, NOTIFIED DR MAGALLANES AND DR MAGALLANES WAS AWARE, ORDERED 12 UNIT OF HUMALOG SUBQ. ADMINISTERED PER MD ORDER.
[2020-05-15] MEDS: INSULIN LANTUS 100 UNITS/ML 10 ML VIAL SUBQ SCH (09:14)
[2020-05-15] MEDS: ASCORBIC ACID 500 MG TAB PO SCH (09:17)
[2020-05-15] MEDS: ZINC SULF 220 MG CAP PO SCH (09:17)
--- NOTE | 2020-05-15 09:17 | NUR ---
BLOOD GLUCOSE 301, CHECKED OGT RESIDUAL AND RECEIVED 50 ML, FLUSHED, ADMINISTERED SCHEDULED MEDS PER MD ORDER VIA SUBQ AND OGT, FLUSHED BEFORE AND AFTER. PROVIDED HYGIENE CARE, ORAL CARE, SUCTIONING, CHG BATH, ARGUELLO CARE, WITH ASSIST, REPOSITIONED PATIENT, AND OFFLOADED PRESSURE WITH PILLOWS, PATIENT TOLERATED FAIR. OGT FEEDING CONTINUE RUNNING AT 40 ML/HR. SAFETY MEASURES IN PLACE. HOB ELEVATED 35 DEGREE, BED IN LOW POSITION AND BED LOCKED.
--- NOTE | 2020-05-15 11:22 | NUR ---
DR MCLEAN IS ROUNDING ON PATIENT, AND WAS AWARE OF CRITICAL LAB BUN 87, CR 6.8 FROM AM LAB. PER DR MCLEAN, HE WILL INPUT ORDER.
--- NOTE | 2020-05-15 11:40 | NUR ---
BLOOD GLUCOSE 323, 8 UNITS HUMALOG COVERED, ADMINISTERED SCHEDULED ZOSYN. PROVIDED ORAL CARE.
--- NOTE | 2020-05-15 15:49 | NUR ---
DISCHARGE PLANNING: THIS IS A 54 Y/O MALE PATIENT FROM HOME, WHO CAME IN DUE TO COUGH AND SOB. NO PERTINENT PAST MEDICAL HISTORY. INITIAL DIAGNOSIS OF ACUTE RESPIRATORY FAILURE, COVID, HYPOXIA. COVID PCR POSITIVE. ORALLY INTUBATED TO VENT, FIO2 100%, PEEP 8, O2 SAT 90%. SEDATED WITH PROPOFOL AND MORPHINE DRIPS. ON LEVOPHED DRIP. ON ZOSYN. PER PULMO - CONT MECHANICAL VENTILATION.
[2020-05-15] MEDS: MORPHINE SULFATE 50 MG in NACL 0.9% 45 ML IV PRN (16:18)
[2020-05-15] MEDS: NOREPINEPHRINE 4 MG in DEXTROSE 5% 250 ML IV PRN (16:19)
--- NOTE | 2020-05-15 16:28 | NUR ---
BLOOD GLUCOSE 344, 8 UNIT HUMALOG COVERED VIA SUBQ. PROVIDED ORAL CARE, AND SUCTIONING, PATIENT TOLERATED FAIR. SAFETY MEASURES IN PLACE.
--- NOTE | 2020-05-15 18:15 | NUR ---
STARTED A NEW BOTTLE OF TUBE FEEDING WITH GRAVITY, NEPRO, CHANGED TUBING.
--- NOTE | 2020-05-15 19:26 | NUR ---
ENDORSED PATIENT TO MEDICAL RECORDS TECH NURSE ANTIONETTE FOR CONTINUITY OF CARE.
--- NOTE | 2020-05-15 19:27 | NUR ---
RECEIVED REPORT FROM DAY SHIFT RN. PT SEDATED TO RASS -3. PT ON ETT TO VENT. SETTINGS FOLLOWS - A/C VC FIO2: 100, TV: 450, RATE: 24, PEEP: 8. LUNGS DIMINISHED. PT WITH OG-TUBE IN PLACE, ON CONTINUOUS FEEDING. BOWEL SOUNDS ACTIVE IN ALL 4 QUADRANTS. ABD SOFT, NON-TENDER. FC IN PLACE DRAINING WELL TO CLEAR/YELLOW-URINE. RT FA PERIPHERAL IV INFUSING MORPHINE, PROPOFOL, LEVOPHED. LAC PERIPHERAL IV RUNNING IVF, SKIN WARM, DRY AND INTACT. SAFETY PRECAUTIONS IN PLACE, BED LOCKED ON LOWEST POSITION, SIDE RAILS RAISED, HOB ELEVATED 30 DEGREES. WILL CONTINUE TO MONITOR
--- NOTE | 2020-05-15 20:23 | NUR ---
BLOOD SUGAR 299. INSULIN COVERAGE GIVEN ORDERED. 5ML RESIDUAL OBTAINED FROM OG-TUBE. SCHEDULED MEDS GIVEN ORDERED. ORAL CARE DONE. PT TURNED TO SIDE. PT TOLERATED CARE PROVIDED. SAFETY MEASURES IN PLACE. WILL CONTINUE TO MONITOR.
[2020-05-15 22:01] LABS: WHITE BLOOD COUNT (AUTO) 14.1 K/uL (4.8-10.8)
--- NOTE | 2020-05-15 22:19 | NUR ---
MOUTH AND ET SUCTIONED. SCANT AMOUNT OF SECRETIONS OBTAINED. PT NOT IN DISTRESS. O2 SAT 90%. PT TURNED TO SIDE. WILL CONTINUE TO MONITOR.
[2020-05-16] VITALS (30 sets, daily range): BP systolic 95–141; BP diastolic 57–80
--- NOTE | 2020-05-16 00:14 | NUR ---
VS STABLE. PT SUCTIONED ORALLY. PT NOT IN DISTRESS. CURRENT O2 SAT 85%. PT TURNED TO SIDE. SAFETY MEASURES IN PLACE. CALL LIGHT WITHIN REACH. WILL CONTINUE TO MONITOR.
[2020-05-16] MEDS: PROPOFOL 1000 MG/100 ML PREMIX 100 ML IV PRN ×3 (02:30→19:04)
--- NOTE | 2020-05-16 02:30 | NUR ---
CHG BATH PROVIDED. PT PLACED ON PRONE WITH ASSISTANCE FROM RT. PT TOLERATED WELL. PT CURRENT O2 SAT 97%. FEEDING HELD. PT KEPT COMFORTABLE. SAFETY MEASURES IN PLACE. WILL CONTINUE TO MONITOR. Addendum: 05/16/20 at 0355 by Nile Murray RN NEW PROPOFOL BAG HUNG
--- NOTE | 2020-05-16 04:30 | NUR ---
PT IN BED ON PRONE POSITION. ET TO VENT. NO S/SX OF DISTRESS NOTED. PT KEPT COMFORTABLE. SAFETY MEASURES IN PLACE. WILL CONTINUE TO MONITOR.
[2020-05-16] MEDS: PIPERACILLIN/TAZOBACTAM 2.25 GM in DEXTROSE 5% 50 ML IV SCH ×3 (06:08→18:00)
[2020-05-16] MEDS: BLOOD GLUCOSE MONITORING 1 DEV DEV FS SCH ×4 (06:43→21:17)
[2020-05-16 06:44] LABS: BASOPHILS # (AUTO) 0.2 K/uL (0.00-0.22); BASOPHILS % (AUTO) 0.7 % (0.0-2.0); EOSINOPHILS # (AUTO) 0.2 K/uL (0-0.4); EOSINOPHILS % (AUTO) 0.8 % (0.0-4.0); HEMATOCRIT 38.2 % (36-52); HEMOGLOBIN 12.9 g/dL (12.0-18.0); LYMPHOCYTES # (AUTO) 0.1 K/uL (2.0-11.5); LYMPHOCYTES % (AUTO) 0.5 % (20.5-51.1); MEAN CORPUSCULAR HEMOGLOBIN 30 pg (27-31); MEAN CORPUSCULAR HGB CONC 34 g/dL (33-37); MEAN CORPUSCULAR VOLUME 89.6 fL (80-94); MONOCYTES # (AUTO) 0.3 K/uL (0.8-1.0); MONOCYTES % (AUTO) 1.5 % (1.7-9.3); NEUTROPHILS # (AUTO) 20.2 K/uL (1.8-7.7); NEUTROPHILS % (AUTO) 96.5 % (42.2-75.2); PLATELET COUNT (AUTO) 270 K/uL (140-450); RED BLOOD CELL COUNT(AUTO) 4.26 MIL/uL (4.20-6.10); RED CELL DISTRIBUTION WIDTH 14.3 % (11.6-13.7)
--- NOTE | 2020-05-16 06:47 | NUR ---
BLOOD SUGAR 494. MADE AWARE. AWAITING ORDERS. WILL CONTINUE TO MONITOR. Addendum: 05/16/20 at 0652 by Nile Murray RN RECEIVED ORDER TO GIVE 12 UNITS HUMALOG. WILL CONTINUE TO MONITOR.
[2020-05-16] MEDS: INSULIN LISPRO SLIDING SCALE 100 UNITS/ML VIAL SUBQ PRN ×5 (06:53→21:18)
[2020-05-16 06:59] LABS: ANION GAP 20.6 (8-16); CARBON DIOXIDE 23.4 mmol/L (21-32)
--- NOTE | 2020-05-16 07:20 | NUR ---
RECEIVED PATIENT FROM SR. MERCHANDISE PLANNER NURSE JOE FOR CONTINUITY OF CARE, PATIENT IS LYING ON PRONE POSITION, RASS -3, DRY WEIGHT 72.5KG, RESPIRATION EVEN AND UNLABORED ON ETT TO VENT, AC/VC FIO2 100%, VT 450, RATE 24, PEEP 8, SPO2 AT 97% AT THIS TIME. FLACC 0. LUNGS SOUND COARSE ON AUSCULTATION. PERIPHERAL IV LAC 20G, SALINE LOCK, RIJ KALLIE IN PLACE,NEREIDA PICC RUNNING PROPOFOL 25 MCG/KG/HR, LEVOPHED 4 MCG/MIN, MORPHINE 2 MG/HR, AND NS AT 5 ML/HR. ABD SOFT, ROUND AND NON-DISTENDED. SKIN DRY AND WARM TO TOUCH. OGT IN PLACE, NOT RUNNING AT THIS TIME DUE TO PRONING AT THIS TIME. PATIENT IS INCONTINENT, ARGUELLO IN PLACE, NO URINE NOTED IN BAG. PATIENT IS BEDREST. FALL RISK PROTOCOL AND ENHANCED DROPLET PRECAUTION IN PLACE. SAFETY MEASURES IN PLACE. BED IN LOW POSITION, HOB ELEVATED 35 DEGREE IN [place]SE [place], AND BED LOCKED.
[2020-05-16 07:24] LABS: MAGNESIUM 2.9 mg/dL (1.8-2.4); PHOSPHORUS 6.8 mg/dL (2.5-4.9)
--- NOTE | 2020-05-16 07:30 | NUR ---
ENDORSED TO DAY SHIFT NURSE FOR CONTINUITY OF CARE
[2020-05-16] MEDS: PANTOPRAZOLE 40 MG INJ VIAL IVP SCH (08:57)
[2020-05-16] MEDS: ZINC SULF 220 MG CAP PO SCH (08:58)
[2020-05-16] MEDS: ASCORBIC ACID 500 MG TAB PO SCH (08:58)
[2020-05-16] MEDS: INSULIN LANTUS 100 UNITS/ML 10 ML VIAL SUBQ SCH (08:59)
--- NOTE | 2020-05-16 09:00 | NUR ---
BLOOD GLUCOSE 458 FROM FINGER STICK, NOTIFIED MD, DR MAGALLANES WAS AWARE, ORDERED 12 UNIT OF HUMALOG SUBQ. ADMINISTERED SCHEDULED MEDS PER MD ORDER, FLUSHED BEFORE AND AFTER MEDS. PROVIDED HYGIENE CARE, PATIENT TOLERATED FAIR. PATIENT IS LYING ON PRONE POSITION, BP 137/75 PULSE 106, SPO2 AT 98% AT THIS TIME. NO DISTRESS NOTED. SAFETY MEASURES IN PLACE.
--- NOTE | 2020-05-16 10:03 | NUR ---
NOTIFIED WALTER CROZE CUTTER FOR PATIENT HAVE DIALYSIS TODAY, WALTER CAMPBELL WAS AWARE.
[2020-05-16 10:59] LABS: CREATININE 8.9 mg/dL (0.6-1.3)
--- NOTE | 2020-05-16 11:12 | NUR ---
CRITICAL LAB FOR GLUCOSE 506, BUN 123, CR 8.9, PATIENT WILL GET DIALYSIS TODAY. NOTIFIED DR MAGALLANES FOR GLUCOSE 506, DR MAGALLANES WAS AWARE AND ORDERED 12 UNITS HUMALOG VIA SUBQ.
--- NOTE | 2020-05-16 11:20 | NUR ---
ADMINISTERED 12 UNIT OF HUMALOG PER DR MAGALLANES ORDER VIA SUBQ.
--- NOTE | 2020-05-16 12:04 | NUR ---
SCHEDULED ZOSYN ADMINISTERED, PATIENT IS LYING ON PRONE POSITION COMFORTABLY, REPOSITIONED PATIENT'S ARMS, FLACC 0. NO SIGNS OF ACUTE DISTRESS NOTED. SAFETY MEASURES IN PLACE.
--- NOTE | 2020-05-16 14:10 | NUR ---
RECEIVED A CALL FROM PATIENT'S DAUGHTER TOMY, UPDATED TOMY WITH PATIENT'S CURRENT CONDITION, TOMY WAS AWARE.
--- NOTE | 2020-05-16 15:30 | NUR ---
PT SUSPINE RN AT BEDSIDE AND ETT SECURED
--- NOTE | 2020-05-16 15:30 | NUR ---
WITH ASSIST, SUPINE PATIENT, PILLOWS USED TO OFFLOADED PRESSURE, PROVIDE HYGIENE CARE, ORAL CARE, AND SUCTIONING, PATIENT TOLERATED FAIR. SAFETY MEASURES IN PLACE. HOB ELEVATED 35 DEGREE, BED IN LOW POSITION, AND BED LOCKED.
[2020-05-16] MEDS: MORPHINE SULFATE 50 MG in NACL 0.9% 45 ML IV PRN (16:03)
--- NOTE | 2020-05-16 17:36 | NUR ---
BLOOD GLUCOSE 273, 6 UNIT COVERAGE GIVEN SUBQ.
--- NOTE | 2020-05-16 18:22 | NUR ---
PATIENT IS IN DIALYSIS AT THIS TIME, UNABLE TO GIVE 1800 DOSE ZOSYN.
[2020-05-16] MEDS: NOREPINEPHRINE 4 MG in DEXTROSE 5% 250 ML IV PRN (18:56)
--- NOTE | 2020-05-16 19:05 | NUR ---
10,000 UNIT PROVIDED TO COMPLIANCE PARALEGAL.
--- NOTE | 2020-05-16 19:36 | NUR ---
ENDORSED PATIENT TO SUPERVISOR NUCLEAR MEDICINE NURSE JOE FOR CONTINUITY OF CARE, PATIENT IS STILL IN DIALYSIS.
--- NOTE | 2020-05-16 19:37 | NUR ---
RECEIVED REPORT FROM DAY SHIFT RN. PT SEDATED TO RASS -3. PT ON ETT TO VENT. SETTINGS FOLLOWS - A/C VC FIO2: 100, TV: 450, RATE: 24, PEEP: 8. LUNG SOUNDS DIMINISHED. PT WITH OG-TUBE IN PLACE, ON CONTINUOUS FEEDING. BOWEL SOUNDS ACTIVE IN ALL 4 QUADRANTS. ABD SOFT, NON-TENDER. FC IN PLACE DRAINING WELL TO CLEAR/YELLOW-URINE. RT FA PERIPHERAL IV INFUSING MORPHINE, PROPOFOL, LEVOPHED. LAC PERIPHERAL IV RUNNING IVF, SKIN WARM, DRY AND INTACT. SAFETY PRECAUTIONS IN PLACE, BED LOCKED ON LOWEST POSITION, SIDE RAILS RAISED, HOB ELEVATED 30 DEGREES. WILL CONTINUE TO MONITOR Addendum: 05/16/20 at 1951 by Nile Murray RN PATIENT CURRENTLY ON HEMODIALYSIS, DIALYSIS NURSE AT BEDSIDE.
--- NOTE | 2020-05-16 21:18 | NUR ---
10 ML RESIDUAL NOTED ON OGT. SCHEDULED MEDS GIVEN ORDERED. BLOOD SUGAR 208. INSULIN COVERAGE ADMINISTERED. PT TURNED TO SIDE. NO S/SX OF DISTRESS NOTED. SAFETY MEASURES IN PLACE. WILL CONTINUE TO MONITOR.
--- NOTE | 2020-05-16 22:08 | NUR ---
PT IN BED. ET TO VENT. NO S/SX OF DISTRESS NOTED. FEEDING IN PLACE. DRIPS INFUSING WELL. ORAL CARE PROVIDED. PT TOLERATED CARE. SAFETY MEASURES IN PLACE. WILL CONTINUE TO MONITOR.
[2020-05-17] VITALS (26 sets, daily range): BP systolic 94–136; BP diastolic 50–77
--- NOTE | 2020-05-17 00:08 | NUR ---
CHG BATH GIVEN. ORAL CARE GIVEN. PT SUCTIONED. SCANT SECRETIONS OBTAINED. NO S/SX OF DISTRESS. FLACC 0. SAFETY MEASURES IN PLACE. WILL CONTINUE TO MONITOR.
[2020-05-17] MEDS: PIPERACILLIN/TAZOBACTAM 2.25 GM in DEXTROSE 5% 50 ML IV SCH ×2 (00:57→06:01)
--- NOTE | 2020-05-17 01:15 | NUR ---
RT AT BEDSIDE, PT PLACED ON PRONE POSITION. PT TOLERATED WELL. PT NOT IN DISTRESS. SAFETY MEASURES IN PLACE. WILL CONTINUE TO MONITOR.
[2020-05-17] MEDS ORDERED: DEXAMETHASONE 10 MG/ML VIAL ONE (03:09)
[2020-05-17] MEDS ORDERED: AZITHROMYCIN 250 MG TAB ONE (03:10)
[2020-05-17] MEDS ORDERED: cefTRIAXone 1,000 MG VIAL ONE (03:11)
[2020-05-17] MEDS ORDERED: LIDOCAINE MPF 1% 5 ML ONE (03:12)
--- NOTE | 2020-05-17 04:10 | NUR ---
PT ON PRONE POSITION. NO S/SX OF DISTRESS NOTED. FLACC 0. PT KEPT COMFORTABLE. SAFETY MEASURES IN PLACE. WILL CONTINUE TO MONITOR.
[2020-05-17] MEDS: PROPOFOL 1000 MG/100 ML PREMIX 100 ML IV PRN ×2 (04:56→23:52)
[2020-05-17 06:25] LABS: HEMATOCRIT 38.3 % (36-52); HEMOGLOBIN 13.2 g/dL (12.0-18.0); MEAN CORPUSCULAR HEMOGLOBIN 30 pg (27-31); MEAN CORPUSCULAR HGB CONC 35 g/dL (33-37); MEAN CORPUSCULAR VOLUME 87.7 fL (80-94); PLATELET COUNT (AUTO) 289 K/uL (140-450); RED BLOOD CELL COUNT(AUTO) 4.36 MIL/uL (4.20-6.10); WHITE BLOOD COUNT (AUTO) 23.2 K/uL (4.8-10.8)
[2020-05-17] MEDS: BLOOD GLUCOSE MONITORING 1 DEV DEV FS SCH ×4 (06:35→21:00)
[2020-05-17 06:36] LABS: ANION GAP 22.3 (8-16); CARBON DIOXIDE 22.7 mmol/L (21-32)
[2020-05-17] MEDS: INSULIN LISPRO SLIDING SCALE 100 UNITS/ML VIAL SUBQ PRN ×2 (06:36→22:04)
--- NOTE | 2020-05-17 07:44 | NUR ---
ENDORSED TP DAY SHIFT NURSE FOR CONTINUITY OF CARE
--- NOTE | 2020-05-17 07:45 | NUR ---
RECEIVED PATIENT FROM MENTAL HEALTH COORDINATOR ON AC 450, R 24, PEEP 8, FIO2 100%. VENT PLUGGED INTO RED OUTLET. BMV AT BEDSIDE, ETT SECURED WITH AN ANCHOR FAST 8.0 @ 23CM. ALARMS SET AUDIBLE, PATIENT IS IN PRONE POSITION. NO RESPIRATORY DISTRESS NOTED. WILL CONTINUE TO MONITOR FOR CHANGES IN RESPIRATORY STATUS.
[2020-05-17 08:16] LABS: LYMPHOCYTES % (MANUAL) 2 % (20-46); METAMYELOCYTES % 1 % (0-0); MONOCYTES % (MANUAL) 2 % (5-12); MYELOCYTES % 1 % (0-0)
[2020-05-17 08:20] LABS: CREATININE 8.6 mg/dL (0.6-1.3)
--- NOTE | 2020-05-17 08:36 | NUR ---
RECEIVED CRITICAL LAB FOR BUN 119 AND CR 8.6, MELLY RASHEED, POLL CLERK MD FOR BRUCE IS JORGE ALCALA, AWAITING FOR MD TO CALL BACK.
--- NOTE | 2020-05-17 08:41 | NUR ---
JORGE ALCALA IS ROUNDING ON PATIENT AND NOTIFIED OF CRITICAL LABS, DR MCLEAN WAS AWARE.
[2020-05-17] MEDS: INSULIN LANTUS 100 UNITS/ML 10 ML VIAL SUBQ SCH (09:17)
[2020-05-17] MEDS: ZINC SULF 220 MG CAP PO SCH (09:19)
[2020-05-17] MEDS: PANTOPRAZOLE 40 MG INJ VIAL IVP SCH (09:19)
[2020-05-17] MEDS: ASCORBIC ACID 500 MG TAB PO SCH (09:19)
--- NOTE | 2020-05-17 09:31 | NUR ---
BLOOD GLUCOSE CHECKED AND RECEIVED 170. CHECKED OGT RESIDUAL AND RECEIVED 40 ML. ADMINISTERED SCHEDULED AM MEDS, FLUSH BEFORE AND AFTER MEDS. PROVIDED HYGIENE CARE, AND ORAL CARE, WITH ASSIST, REPOSITIONED PATIENT'S ARMS AND HEAD, PATIENT TOLERATED FAIR. PATIENT IS LYING ON PRONE POSITION, FLACC 0. RESPIRATION EVEN AND UNLABORED ON ETT TO VENT, AC/VC FIO2 AT 100%, TV 450, RATE 24, PEEP AT 8, SPO2 AT 93% AT THIS TIME. NEREIDA PICC RUNNING PROPOFOL 25 MCG/KG/HR, NS AT 5 ML/HR, MORPHINE AT 2 MG/HR AND LEVOPHED AT 4 MCG/MIN, BP 99/48, PULSE 118. NO SIGNS OF ACUTE DISTRESS NOTED. SAFETY MEASURES IN PLACE. HOB ELEVATED, REVERSE [place] POSITION, BED IN LOW POSITION, AND BED LOCKED.
--- NOTE | 2020-05-17 12:06 | NUR ---
BLOOD GLUCOSE CHECKED AND RECEIVED 150, NO COVERAGE NEEDED.
--- NOTE | 2020-05-17 13:11 | NUR ---
DEANGELO BROTHER IN LAW CALLED, UPDATED PATIENT'S CURRENT CONDITION, DEANGELO WAS AWARE.
--- NOTE | 2020-05-17 13:34 | NUR ---
RECOMMENDATIONS TO CHANGE TUBE FEEDING DUE TO PATIENT BEING PRONE WAS APPROVED BY DR. RANGEL. RECOMMENDATIONS: NEPRO 1.2 @ 80 ML/HR X 8 HOURS WITH PROSOURCE BID. FLUSH OF 160 ML Q12H.
--- NOTE | 2020-05-17 15:49 | NUR ---
05/17/20 RD FOLLOW UP COMPLETED PLEASE REFER TO NUTRITION ASSESSMENT UNDER CARE ACTIVITY FOR ESTIMATED NUTRITIONAL NEEDS. 1. RD RECOMMENDED NEPRO 1.8 @ 80 ML/HR X 8HR WITH PROSOURCE BID -THIS WILL PROVIDE 1272 KCAL, 81 GM OF PROTEIN. MEETS 78% OF KCAL AND 84% OF PROTEIN NEEDS. 2. RECOMMEND FREE WATER FLUSH OF [address] TO FOLLOW-UP 2-3 DAYS, HIGH RISK BILL HA, RD
--- NOTE | 2020-05-17 17:05 | NUR ---
WITH ASSIST FROM RT, POSITIONED PATIENT INTO SUPINE, POSITIONED PATIENT COMFORTABLY, OFFLOADED PRESSURE WITH PILLOWS, HYGIENE CARE AND ORAL CARE PROVIDED. SAFETY MEASURES IN PLACE.
[2020-05-17] MEDS: MORPHINE SULFATE 50 MG in NACL 0.9% 45 ML IV PRN (18:32)
--- NOTE | 2020-05-17 20:00 | NUR ---
REPORT GIVEN AT BEDSIDE FOR CONTINUITY OF CARE, PT HAS RIGHT UPPER PICC, WITH PROPOFOL RUNNING AT 25MCG /KG/A MIN, WELL MORPHINE 2 MCG/MIN AND N/S AT 5TKO. PT WAS TURNED AND REPOSITED, TUBE FEEDING IN PLACE AND RUNNING ORDERED. WALTER MONTOYA NURSE AWARE OF HD ORDER TOMORROW.
--- NOTE | 2020-05-17 20:02 | NUR ---
RECEIVED PATIENT FROM AM SHIFT. PATIENT WAS SEEN AND ASSESSED. PATIENT IS INTUBATED WITH ETT SIZE 8.0 AND SECURED WITH ANCHOR-FAST AT 23cm. PATIENT IS ON VENT SETTINGS: AC/VC RR 24, VT 450, PEEP 8, FiO2 95% WITH SPO2 OF 96%. VENT IS PLUGGED IN RED OUTLET. ALARMS SET AND AUDIBLE TO ENVIRONMENT. SUCTIONED SMALL AMOUNT OF YELLOW THICK SECRETIONS FROM ETT. AIRWAY IS PATENT. AUSCULTATION REVEALS BILATERAL COARSE BREATH SOUNDS. PATIENT IS IN NO APPARENT RESPIRATORY DISTRESS AT THIS TIME. WILL CONTINUE TO MONITOR PATIENT.
[2020-05-17] MEDS ORDERED: SODIUM BICARBONATE 8.4% PFS 50 MEQ/50 ML SYR IVP SCH (23:00)
--- NOTE | 2020-05-17 23:00 | NUR ---
BINH DRAWN RESULTS GIVEN TO MD PURCELL , NEW ORDERS NOTED.
[2020-05-18] VITALS (25 sets, daily range): BP systolic 82–124; BP diastolic 44–82
--- NOTE | 2020-05-18 01:40 | NUR ---
PT WAS SUCCESSFULLY PRONE. AIRWAY PATENT. TUBE SECURED. WILL CONTINUE TO MONITOR.
--- NOTE | 2020-05-18 02:00 | NUR ---
PT WAS CLEANED, CHANGED AND PRONED TO ASSIST WITH RESPIRATIONS AND INCREASED 02. NG AND ETT TUBE IN PLACE WELL ARGUELLO CATHETER.
--- NOTE | 2020-05-18 04:00 | NUR ---
PT IN BED PRONE POSITION, ALL FLUIDS RUNNING ORDERED EXCEPT FOR TUBE FEEDING. ALL ROUTINE CARE GIVEN , PT V/S STABLE.
[2020-05-18 06:47] LABS: BASOPHILS # (AUTO) 0.1 K/uL (0.00-0.22); BASOPHILS % (AUTO) 0.7 % (0.0-2.0); HEMATOCRIT 36.4 % (36-52); HEMOGLOBIN 12.5 g/dL (12.0-18.0); LYMPHOCYTES # (AUTO) 0.2 K/uL (2.0-11.5); LYMPHOCYTES % (AUTO) 1.1 % (20.5-51.1); MEAN CORPUSCULAR HEMOGLOBIN 31 pg (27-31); MEAN CORPUSCULAR HGB CONC 34 g/dL (33-37); MEAN CORPUSCULAR VOLUME 88.6 fL (80-94); MONOCYTES # (AUTO) 0.1 K/uL (0.8-1.0); MONOCYTES % (AUTO) 0.6 % (1.7-9.3); NEUTROPHILS # (AUTO) 16.2 K/uL (1.8-7.7); NEUTROPHILS % (AUTO) 97.6 % (42.2-75.2); PLATELET COUNT (AUTO) 298 K/uL (140-450); RED CELL DISTRIBUTION WIDTH 14.5 % (11.6-13.7); WHITE BLOOD COUNT (AUTO) 16.6 K/uL (4.8-10.8)
[2020-05-18 07:07] LABS: ALBUMIN 1.2 g/dL (3.4-5.0); ANION GAP 26.4 (8-16); CARBON DIOXIDE 19.2 mmol/L (21-32); MAGNESIUM 3.3 mg/dL (1.8-2.4); POTASSIUM 4.6 mmol/L (3.5-5.1); TOTAL BILIRUBIN 0.8 mg/dL (0.0-1.0)
--- NOTE | 2020-05-18 07:15 | NUR ---
RECEIVED HANDOFF FROM SYSTEMS ADMINISTRATOR RN. PT IS SEDATED RASS -3. PT IS ETT TO VENT FIO2 100%, R 24, PEE 8, VT 450. PT IS RI J FOR HEMODIALYSIS AND NEREIDA PICC LINE. PROPOFOL IS RUNNING AT 25 MCG/KG/MIN, MORPHINE AT 2 MG/HR. LEVOPHED IS ON HOLD PRN. PT IS ON NEPRO RUNNING BY GRAVIT 40 ML/HR WITH F2F 130 ML Q 4HR. FEEDING IS HELD BC PT IS PRONE. PT IS PRONE AT THIS TIME IN REVERSE TRENDELENBERG. ARGUELLO CATHETER IS IN PLACE. WILL CONTINUE TO MONITOR.
[2020-05-18] MEDS: BLOOD GLUCOSE MONITORING 1 DEV DEV FS SCH ×4 (08:06→20:33)
[2020-05-18] MEDS: PROPOFOL 1000 MG/100 ML PREMIX 100 ML IV PRN ×2 (08:13→17:00)
[2020-05-18] MEDS: INSULIN LANTUS 100 UNITS/ML 10 ML VIAL SUBQ SCH (09:00)
[2020-05-18] MEDS: PANTOPRAZOLE 40 MG INJ VIAL IVP SCH (09:34)
[2020-05-18] MEDS: ASCORBIC ACID 500 MG TAB PO SCH (09:36)
[2020-05-18] MEDS: ZINC SULF 220 MG CAP PO SCH (09:36)
[2020-05-18 09:41] LABS: PHOSPHORUS 9.7 mg/dL (2.5-4.9)
--- NOTE | 2020-05-18 10:15 | NUR ---
MEDICATIONS ADMINISTERED PER ORDER. 5 ML RESIDUAL FROM TUBE FEED. TEMPERATURE 97.7 TEMPORALLY. VAP ORAL CARE, CHG BATH PROVIDED, ARGUELLO CARE PROVIDED. PT HAD LARGE DARK WATERY BOWEL MOVEMENT. CLEANED AND CHANGED.
--- NOTE | 2020-05-18 12:30 | NUR ---
BS 94. NO INSULIN COVERAGE ADMINISTERED. TEMPERATURE 97.5 TEMPORALLY
[2020-05-18] MEDS: NOREPINEPHRINE 4 MG in DEXTROSE 5% 250 ML IV PRN (14:27)
[2020-05-18] MEDS: NACL 0.9% 1,000 ML IV SCH (14:55)
--- NOTE | 2020-05-18 16:15 | NUR ---
BS 125, NO INSULIN COVERAGE NEEDED.
--- NOTE | 2020-05-18 17:30 | NUR ---
PT PLACED INTO SUPINE POSITION, RT HANNA AT BEDSIDE. PT CLEANED, CHANGED. ARGUELLO CARE PROVIDED. TEMPERATURE 97.3 TEMPORALLY. VAP ORAL CARE
--- NOTE | 2020-05-18 17:30 | NUR ---
pt supine rn at bedside and ett secured
--- NOTE | 2020-05-18 19:25 | NUR ---
RECEIVED BEDSIDE REPORT FROM DAY SHIFT NURSES. PATIENT RASS -3, RESPIRATION EVEN UNLABORED ON ETT TO VENT, AC/VC FIO2 80% RATE 24, PEEP 8, VOLUME 450 SPO2 92%. SKIN IS WARM AND DRY. RIGHT UPPER ARM PICC LINE NOTED PROPOFOL 25MCG/KG/HR, LEVOPHED 10MCG/MIN, MORPHINE 2MG/HR, AND NS AT 20CC/HR. TROY ARREGUIN NOTED. OGTUBE IN PLACE. ARGUELLO IN PLACE NO URINE NOTED IN BAG. PLAN OF CARE UPDATED. ALL SAFETY MEASURES IN PLACE. BED IS AT LOW POSITION. CALL LIGHT WITHIN REACH. WILL CONTINUE TO MONITOR
--- NOTE | 2020-05-18 19:30 | NUR ---
HANDOFF GIVEN TO COATER HAND RN FOR CONTINUITY OF CARE
--- NOTE | 2020-05-18 20:35 | NUR ---
ALL SCHEDULED MEDS WERE GIVEN PER ORDER.
[2020-05-18] MEDS: MORPHINE SULFATE 50 MG in NACL 0.9% 45 ML IV PRN (22:25)
--- NOTE | 2020-05-18 22:30 | NUR ---
SUCTIONED PATIENT, OBTAINED SMALL AMOUNT OF SECRETION. PROVIDED ORAL CARE. PATIENT TOLERATED IT WELL. WILL CONTINUE TO MONITOR
[2020-05-19] VITALS (27 sets, daily range): BP systolic 94–130; BP diastolic 37–58
[2020-05-19] MEDS: NOREPINEPHRINE 4 MG in DEXTROSE 5% 250 ML IV PRN ×2 (00:12→07:26)
[2020-05-19] MEDS: PROPOFOL 1000 MG/100 ML PREMIX 100 ML IV PRN ×2 (01:20→08:52)
--- NOTE | 2020-05-19 02:15 | NUR ---
PLACED PATIENT IN PRONE POSITION. PATIENT TOLERATED PROCEDURE WELL. SUCTION SMALL AMOUNT OF YELLOW THICK SECRETIONS FROM ETT. ETT SECURED AND AIRWAY IS PATENT. BILATERAL BREATH SOUNDS ON AUSCULTATION. PATIENT IS IN NO RESPIRATORY DISTRESS AT THIS TIME. RNs AT BEDSIDE. WILL CONTINUE TO MONITOR PATIENT.
--- NOTE | 2020-05-19 02:30 | NUR ---
PLACED PATIENT IN PRONE POSITION AND PROVIDED MORNING CARE
--- NOTE | 2020-05-19 04:15 | NUR ---
PROVIDED MORNING CARE
[2020-05-19 06:30] LABS: HEMATOCRIT 33.2 % (36-52); HEMOGLOBIN 11.4 g/dL (12.0-18.0); MEAN CORPUSCULAR HEMOGLOBIN 31 pg (27-31); MEAN CORPUSCULAR HGB CONC 34 g/dL (33-37); MEAN CORPUSCULAR VOLUME 88.5 fL (80-94); PLATELET COUNT (AUTO) 301 K/uL (140-450); RED BLOOD CELL COUNT(AUTO) 3.75 MIL/uL (4.20-6.10); RED CELL DISTRIBUTION WIDTH 14.5 % (11.6-13.7)
[2020-05-19 07:34] LABS: ALBUMIN 1.2 g/dL (3.4-5.0); ANION GAP 25.1 (8-16); CARBON DIOXIDE 19.7 mmol/L (21-32); MAGNESIUM 2.9 mg/dL (1.8-2.4); PHOSPHORUS 8.6 mg/dL (2.5-4.9); POTASSIUM 4.8 mmol/L (3.5-5.1)
[2020-05-19] MEDS: BLOOD GLUCOSE MONITORING 1 DEV DEV FS SCH ×4 (07:34→21:00)
--- NOTE | 2020-05-19 07:38 | NUR ---
ENDORSED PATIENT TO DAY SHIFT NURSE AT BEDSIDE FOR CONTINUITY OF CARE.
[2020-05-19] MEDS: INSULIN LANTUS 100 UNITS/ML 10 ML VIAL SUBQ SCH (08:50)
[2020-05-19] MEDS: PANTOPRAZOLE 40 MG INJ VIAL IVP SCH (08:52)
[2020-05-19] MEDS: ASCORBIC ACID 500 MG TAB PO SCH (08:52)
[2020-05-19] MEDS: ZINC SULF 220 MG CAP PO SCH (08:52)
--- NOTE | 2020-05-19 08:53 | NUR ---
BLOOD GLUCOSE 123, ADMINISTERED ALL SCHEDULED AM MEDS VIA SUB AND OGT, FLUSHED BEFORE AND AFTER MEDS. STARTED A NEW BOTTLE OF PROPOFOL, CHANGED TUBING, CONTINUE RUNNING AT 25 MCG/KG/MIN. MORPHINE RUNNING AT 2 MG/HR AND LEVOPHED AT 10 MCG/MIN, PULSE AT 122, BP 126/49, SPO2 AT 94% ON ETT TO VENT AC/VC FIO2 AT 80%, RATE 24, PEEP AT 8, TD 450. PATIENT IS LYING ON PRONE POSITION COMFORTABLY. REPOSITIONED PATIENT'S ARMS AND HEAD, PROVIDED SUCTIONING, PATIENT TOLERATED FAIR. NO SIGNS OF ACUTE DISTRESS NOTED. SAFETY MEASURES IN PLACE. BED IN LOW POSITION, HOB IN REVERSE [place], AND BED LOCKED.
[2020-05-19 08:54] LABS: CREATININE 8.3 mg/dL (0.6-1.3)
[2020-05-19 10:05] LABS: EOSINOPHILS % (MANUAL) 3 % (0-4); LYMPHOCYTES % (MANUAL) 2 % (20-46); MONOCYTES % (MANUAL) 4 % (5-12); WHITE BLOOD COUNT (AUTO) 34.8 K/uL (4.8-10.8)
--- NOTE | 2020-05-19 10:06 | NUR ---
RECEIVED CRITICAL LAB FOR WBC 34.2, PAGED DR GOODMAN, AWAITING FOR MD TO RETURN CALL.
[2020-05-19] MEDS ORDERED: LOVENOX 1MG/KG Q12H SUBQ SCH (11:40)
[2020-05-19] MEDS: PIPERACILLIN/TAZOBACTAM 2.25 GM in DEXTROSE 5% 50 ML IV SCH ×2 (13:11→21:00)
--- NOTE | 2020-05-19 13:21 | NUR ---
RECEIVED A CALL FROM PATIENT'S SON SAVANAH, PROVIDED UPDATED WITH PATIENT'S CURRENT CONDITION, SAVANAH WAS AWARE.
--- NOTE | 2020-05-19 14:31 | NUR ---
PATIENT'S AND SON SAVANAH IS SEEING PATIENT FROM WINDOW-SIDE AT PARKING LOT. PER REQUEST, RETURNED ALL PATIENT'S BELONGINGS TO AND SON SAVANAH.
[2020-05-19] MEDS: NACL 0.9% 1,000 ML IV SCH (14:55)
--- NOTE | 2020-05-19 16:50 | NUR ---
WITH ASSIST, SUPINE PATIENT AT THIS TIME. PILLOWS USED TO OFFLOADED PRESSURE, PROVIDE HYGIENE CARE, ORAL CARE AND SUCTIONING, PATIENT TOLERATED FAIR. POSITIONED PATIENT COMFORTABLY, STARTED OGT FEEDING, SAFETY MEASURES IN PLACE. HOB ELEVATED 35 DEGREE, BED IN LOW POSITION AND BED LOCKED.
--- NOTE | 2020-05-19 20:00 | NUR ---
RECEIVED REPORT FROM DAY SHIFT RN. PT ETT TO VENT. A/C VC FIO2 80%, TV 450, PEEP 8, RATE 24. RESPIRATION EVEN AND UNLABORED. CHEST EXPANSION SYMMETRICAL. ORAL MUCOSA PINK AND MOIST. SKIN WARM AND DRY. <3 CAPILLARY REFILL. PT HAS ACCESSES ON THE RIGHT UPPER ARM PICC, RIGHT IJ KALLIE CATH FOR HD. PT ON MORPHINE @ 2 MG/HR, PROPOFOL @ 25 MCG/KG/MIN. OGT TO FEEDING, NEPRO @ 40ML/HR WITH FWF 130ML/Q4. BED IN LOWEST POSITION, SIDE RAILS UP, ISOLATION PRECAUTIONS MAINTAINED. WILL CONTINUE TO MONITOR.
[2020-05-19] MEDS: MORPHINE SULFATE 50 MG in NACL 0.9% 45 ML IV PRN (22:55)
[2020-05-20] VITALS (25 sets, daily range): BP systolic 91–140; BP diastolic 37–66
--- NOTE | 2020-05-20 | NUR ---
TURNED AND REPOSITIONED PT. PRESSURE AREAS OFF LOADED. PT CONDITION REMAINS UNCHANGED. WILL CONTINUE TO MONITOR.
[2020-05-20] MEDS: PROPOFOL 1000 MG/100 ML PREMIX 100 ML IV PRN ×2 (00:59→20:42)
--- NOTE | 2020-05-20 04:00 | NUR ---
PLACED PT ON PRONE POSITION AT THIS TIME. PT TOLERATED PROCEDURE WELL.
[2020-05-20] MEDS: PIPERACILLIN/TAZOBACTAM 2.25 GM in DEXTROSE 5% 50 ML IV SCH ×3 (05:00→20:41)
[2020-05-20 06:54] LABS: BASOPHILS # (AUTO) 0.1 K/uL (0.00-0.22); BASOPHILS % (AUTO) 0.3 % (0.0-2.0); EOSINOPHILS % (AUTO) 0.1 % (0.0-4.0); HEMATOCRIT 31.4 % (36-52); HEMOGLOBIN 10.5 g/dL (12.0-18.0); LYMPHOCYTES # (AUTO) 0.2 K/uL (2.0-11.5); LYMPHOCYTES % (AUTO) 0.6 % (20.5-51.1); MEAN CORPUSCULAR HEMOGLOBIN 30 pg (27-31); MEAN CORPUSCULAR HGB CONC 34 g/dL (33-37); MEAN CORPUSCULAR VOLUME 89.3 fL (80-94); MONOCYTES # (AUTO) 0.2 K/uL (0.8-1.0); MONOCYTES % (AUTO) 0.6 % (1.7-9.3); NEUTROPHILS # (AUTO) 28.4 K/uL (1.8-7.7); NEUTROPHILS % (AUTO) 98.4 % (42.2-75.2); PLATELET COUNT (AUTO) 308 K/uL (140-450); RED BLOOD CELL COUNT(AUTO) 3.51 MIL/uL (4.20-6.10); RED CELL DISTRIBUTION WIDTH 14.7 % (11.6-13.7)
--- NOTE | 2020-05-20 07:20 | NUR ---
ENDORSED PT TO DAY SHIFT RN FOR CONTINUITY OF CARE.
[2020-05-20 07:44] LABS: ANION GAP 31.5 (8-16); ASPARTATE AMINOTRANSFERASE 64 U/L (15-37); CARBON DIOXIDE 14.4 mmol/L (21-32); CHLORIDE 89 mmol/L (98-107); GFR ARICAN-AMERICAN 7 mL/min (>90); GLUCOSE 143 mg/dL (74-106); LACTATE DEHYDROGENASE 565 U/L (85-227); MAGNESIUM 2.9 mg/dL (1.8-2.4); SODIUM SERUM 128 mmol/L (136-145); TOTAL BILIRUBIN 0.8 mg/dL (0.0-1.0)
[2020-05-20] MEDS: BLOOD GLUCOSE MONITORING 1 DEV DEV FS SCH ×4 (08:07→20:41)
--- NOTE | 2020-05-20 08:11 | NUR ---
NOTIFIED WALTER HOUSEKEEPING AIDE THAT PATIENT HAS DIALYSIS ORDER FOR TODAY, WALTER CAMPBELL WAS AWARE.
[2020-05-20] MEDS: NOREPINEPHRINE 4 MG in DEXTROSE 5% 250 ML IV PRN ×2 (08:20→17:12)
[2020-05-20] MEDS: INSULIN LANTUS 100 UNITS/ML 10 ML VIAL SUBQ SCH (08:34)
[2020-05-20] MEDS: ASCORBIC ACID 500 MG TAB PO SCH (08:36)
[2020-05-20] MEDS: ZINC SULF 220 MG CAP PO SCH (08:36)
[2020-05-20] MEDS: PANTOPRAZOLE 40 MG INJ VIAL IVP SCH (08:36)
--- NOTE | 2020-05-20 08:36 | NUR ---
BLOOD GLUCOSE CHECKED 131, CHECKED OGT RESIDUAL AND RECEIVED ZERO RESIDUAL, ADMINISTERED SCHEDULED AM MEDS VIA OGT AND SUBQ, FLUSH BEFORE AND AFTER MEDS. PROVIDED HYGIENE CARE, ORAL CARE, CHG BATH, FLACC 0. RESPIRATION EVEN AND UNLABORED ON ETT TO VENT AV/VC FIO2 80%, RATE 24, PEEP 8, TIDAL 450, SPO2 AT 93%, PULSE 116, BP 114/48. NEREIDA PICC RUNNING PROPOFOL 20 MCG/KG/MIN, MORPHINE 2 MG/HR, LEVOPHED AT 4 MCG/MIN, AND NS AT 20 ML/HR. PATIENT IS LYING ON PRONE POSITION COMFORTABLY, REVERSE TR[place]. OGT IN PLACE, NOT RUNNING AT THIS TIME DUE TO PRONING. SAFETY MEASURES IN PLACE. BED IN LOW POSITION, AND BED LOCKED.
[2020-05-20 10:51] LABS: POTASSIUM 6.9 mmol/L (3.5-5.1); UREA NITROGEN, BLOOD 201 mg/dL (7-18)
[2020-05-20 10:52] LABS: PHOSPHORUS 13.3 mg/dL (2.5-4.9)
--- NOTE | 2020-05-20 10:55 | NUR ---
RECEIVED CRITICAL LAB FOR POTASSIUM 6.9, BUN 201, CR 10, CA 7.2, DR ZAZUETA MADE AWARE. DIALYSIS ORDER IN, DIALYSIS LUISA CAMPBELL IS ABOUT TO START DIALYSIS FOR PATIENT TODAY.
--- NOTE | 2020-05-20 11:01 | NUR ---
RECEIVED A CALL BACK FROM DR STOUT AND TOLD TO INFORM PIPE ASSEMBLY WORKER TO DO 1K, NOTIFIED PIPE ASSEMBLY WORKER LUISA AT BEDSIDE. LUISA CAMPBELL WAS AWARE.
[2020-05-20] MEDS ORDERED: LORazepam 2 MG/ML VIAL ONE (12:56)
--- NOTE | 2020-05-20 13:00 | NUR ---
PATIENT IS DESATURATING TO SPO2 65%-70% DURING DIALYSIS, SHOWS UNPURPOSEFUL MOVEMENT AND JERKING, ST 135 BPM ON TELE MONITOR, WITH ASSIST FROM RT, SUPINE PATIENT, SUCTIONING, AND PROVIDED ORAL CARE, DIALYSIS STOPPED AT THIS TIME. REPOSITIONED PATIENT AND CHECKED VITAL SIGNS: TEMP 99.5 TEMPORAL, PULSE 123, BP 122/66, SPO2 AT 97%. APPLIED TELE MONITOR AT THIS TIME.
[2020-05-20 13:57] LABS: WHITE BLOOD COUNT (AUTO) 28.9 K/uL (4.8-10.8)
--- NOTE | 2020-05-20 14:10 | NUR ---
SPOKE WITH PATIENT'S AND SON SAVANAH, OBTAINED CONSENT FOR PLACEMENT NEW HEMODIALYSIS CATHETER, AND SAVANAH ARE AWARE AND AGREED TO PROCEDURE.
--- NOTE | 2020-05-20 14:15 | NUR ---
RECEIVED A CALL FROM PATIENT'S DAUGHTER TOMY, UPDATED TOMY WITH PATIENT'S CURRENT CONDITION AND TOMY WAS AWARE.
[2020-05-20 16:48] LABS: CARBON DIOXIDE 19.2 mmol/L (21-32); POTASSIUM 5.2 mmol/L (3.5-5.1)
--- NOTE | 2020-05-20 16:54 | NUR ---
05/20/20 RD FOLLOW UP COMPLETED. PLEASE REFER TO NUTRITION ASSESSMENT UNDER CARE ACTIVITY FOR ESTIMATED NUTRITIONAL NEEDS. NEPRO @ 80 ML/HR X 8 HRS FREE WATER FLUSH PER MD RD TO FOLLOW-UP IN 2-3 DAYS PATIENT IS HIGH RISK. SALOMÓN WEEMS, RD
[2020-05-20 17:02] LABS: CREATININE 7.6 mg/dL (0.6-1.3)
--- NOTE | 2020-05-20 17:06 | NUR ---
RECEIVED CRITICAL LAB FOR BUN 146, CR 7.6, K 5.2, DR ZAZUETA MADE AWARE AT NURSING STATION. PER DR ZAZUETA, HE HAS ORDER DIALYSIS TOMORROW.
--- NOTE | 2020-05-20 17:35 | NUR ---
STARTED OGT FEEDING NEPRO PER MD ORDER, CHANGED ALL TUBING.
--- NOTE | 2020-05-20 20:00 | NUR ---
RECEIVED REPORT FROM DAY SHIFT RN. PT ETT TO VENT. A/C VC FIO2 100%, TV 450, PEEP 8, RATE 24. RESPIRATION EVEN AND UNLABORED. CHEST EXPANSION SYMMETRICAL. ORAL MUCOSA PINK AND MOIST. SKIN WARM AND DRY. <3 CAPILLARY REFILL. PT HAS ACCESSES ON THE RIGHT UPPER ARM PICC, RIGHT IJ KALLIE CATH FOR HD. PT ON MORPHINE @ 2 MG/HR, PROPOFOL @ 20 MCG/KG/MIN, NS 20 ML/HR, LEVOPHED 4MCG/MIN, OGT TO FEEDING, NEPRO @ 40ML/HR WITH FWF 130ML/Q4. BED IN LOWEST POSITION, SIDE RAILS UP, ISOLATION PRECAUTIONS MAINTAINED. WILL CONTINUE TO MONITOR.
--- NOTE | 2020-05-20 21:09 | NUR ---
PT WAS FOUND WITH ETT BEING PULLED ON BY SUPPORT ARM AND SECURED AT 18 (PREV SECURED AT 23) ETT WAS RE-ADVANCED TO 23 AND ETT PLACEMENT XRAY WAS TAKEN ED DR MADE AWARE AND MAY POSSIBLY NEED TO RE-INTUBATE PT INTUBATION KIT CURRENTLY AT BEDSIDE
--- NOTE | 2020-05-20 21:50 | NUR ---
ED DR CAME TO BEDSIDE AND RE-INTUBATED PT AND 8.0 ETT SECURED AT PREV DEPTH 23CM W/ COLOR CHANGE ON EZ-CAP, CONDENSATION IN ETT, PT APPEARS TO BE RECEIVING VOLUMES ON VENT REPEAT TUBE PLACEMENT XRAY TAKEN AND INITIAL VENT CHECK POST RE-INTUBATION COMPLETED
[2020-05-21] VITALS (26 sets, daily range): BP systolic 91–132; BP diastolic 38–74
[2020-05-21] MEDS: NACL 0.9% 1,000 ML IV SCH ×2 (00:17→15:48)
[2020-05-21] MEDS: MORPHINE SULFATE 50 MG in NACL 0.9% 45 ML IV PRN ×2 (00:17→18:51)
[2020-05-21] MEDS: PIPERACILLIN/TAZOBACTAM 2.25 GM in DEXTROSE 5% 50 ML IV SCH ×3 (05:00→21:20)
--- NOTE | 2020-05-21 06:22 | NUR ---
PT PRONED AND TOLERATING WELL
[2020-05-21] MEDS: PROPOFOL 1000 MG/100 ML PREMIX 100 ML IV PRN ×2 (06:45→18:16)
[2020-05-21 06:50] LABS: HEMATOCRIT 34.3 % (36-52); HEMOGLOBIN 11.5 g/dL (12.0-18.0); MEAN CORPUSCULAR HEMOGLOBIN 30 pg (27-31); MEAN CORPUSCULAR HGB CONC 33 g/dL (33-37); PLATELET COUNT (AUTO) 218 K/uL (140-450); RED BLOOD CELL COUNT(AUTO) 3.81 MIL/uL (4.20-6.10); RED CELL DISTRIBUTION WIDTH 14.6 % (11.6-13.7)
[2020-05-21 07:16] LABS: MAGNESIUM 3.3 mg/dL (1.8-2.4)
[2020-05-21] MEDS: BLOOD GLUCOSE MONITORING 1 DEV DEV FS SCH ×4 (07:30→21:20)
[2020-05-21 07:58] LABS: WHITE BLOOD COUNT (AUTO) 26.2 K/uL (4.8-10.8)
[2020-05-21 07:59] LABS: LYMPHOCYTES % (MANUAL) 2 % (20-46); MONOCYTES % (MANUAL) 2 % (5-12)
[2020-05-21 08:08] LABS: PHOSPHORUS 11.2 mg/dL (2.5-4.9)
[2020-05-21] MEDS: INSULIN LANTUS 100 UNITS/ML 10 ML VIAL SUBQ SCH (09:01)
[2020-05-21] MEDS: PANTOPRAZOLE 40 MG INJ VIAL IVP SCH (09:01)
[2020-05-21] MEDS: ASCORBIC ACID 500 MG TAB PO SCH (09:01)
[2020-05-21] MEDS: ZINC SULF 220 MG CAP PO SCH (09:02)
--- NOTE | 2020-05-21 09:20 | NUR ---
CHECKED OGT RESIDUAL AND RECEIVED 300 ML YELLOW WHITE RESIDUAL, HELD OGT FEEDING. ADMINISTERED ALL SCHEDULED AM MEDS VIA SUB AND OGT, FLUSHED BEFORE AND AFTER MEDS. NEREIDA PICC LINE RUNNING PROPOFOL AT 20 MCG/KG/MIN. MORPHINE RUNNING AT 2 MG/HR AND LEVOPHED AT 4 MCG/MIN, PULSE AT 96 , BP 95/52, SPO2 AT 96% ON ETT TO VENT AC/VC FIO2 AT 90%, RATE 24, PEEP AT 8, TD 450. PATIENT IS LYING ON PRONE POSITION COMFORTABLY. REPOSITIONED PATIENT'S ARMS AND HEAD, PROVIDED SUCTIONING, PATIENT TOLERATED FAIR. NO SIGNS OF ACUTE DISTRESS NOTED. SAFETY MEASURES IN PLACE. BED IN LOW POSITION, HOB IN REVERSE [place], AND BED LOCKED.
[2020-05-21] MEDS: NOREPINEPHRINE 4 MG in DEXTROSE 5% 250 ML IV PRN ×2 (09:24→18:18)
--- NOTE | 2020-05-21 09:49 | NUR ---
DR RAI IS ROUNDING ON PATIENT.
--- NOTE | 2020-05-21 10:45 | NUR ---
NOTIFIED WALTER INSPECTOR RECEIVING, PATIENT HAS DIALYSIS ORDER FOR TODAY, WALTER WAS AWARE.
--- NOTE | 2020-05-21 10:50 | NUR ---
RECEIVED A CALL FROM DR STOUT, INFORMED POTASSIUM IS HIGH FOR TODAY, AND AWAITING FOR DR SHIRLEY TO CHANGE KALLIE CATH, CONSENT OBTAINED FROM YESTERDAY, [employer] DIRECTOR NOTIFIED FOR DIALYSIS TODAY, DR STOUT WAS AWARE, RECEIVED TORB ORDERS FOR CALCIUM CHLORIDE 1 AMP IVP ONCE, 5 UNIT REGULAR IVP ONCE, D50% IVP ONCE, REPEATED AND CONFIRMED ORDER WITH DR STOUT.
--- NOTE | 2020-05-21 10:56 | NUR ---
DR SHIRLEY IS ROUNDING ON PATIENT. ASKED IF HE IS GOING TO CHANGE THE KALLIE CATH AND INFORMED THAT CONSENT HAS BEEN OBTAINED FROM . PER DR SHIRLEY, HE WAS TOLD THAT KALLIE IS FUNCTION PROPERLY AND WILL NOT CHANGE IT TODAY.
[2020-05-21] MEDS ORDERED: DEXTROSE 50% 50 ML SYR IVP SCH (11:00)
[2020-05-21] MEDS ORDERED: CALCIUM CHLORIDE 10% 100 MG/ML SYR IVP SCH (11:00)
[2020-05-21] MEDS ORDERED: INSULIN REGULAR, HUMAN 100 UNIT/ML VIAL IVP SCH (11:00)
--- NOTE | 2020-05-21 11:14 | NUR ---
BLOOD GLUCOSE CHECKED 361, ADMINISTERED 5 UNIT HUMULIN R VIA IVP, 1 AM CALCIUM CHLORIDE, D50% PER DR STOUT ORDERED.
[2020-05-21] MEDS: INSULIN LISPRO SLIDING SCALE 100 UNITS/ML VIAL SUBQ PRN ×3 (11:54→16:58)
--- NOTE | 2020-05-21 11:54 | NUR ---
BLOOD GLUCOSE CHECKED 385, 10 UNIT HUMALOG GIVEN.
--- NOTE | 2020-05-21 12:19 | NUR ---
DR ZAZUETA NOTIFIED ON REGARDS OF DR SHIRLEY'S COMMENT ON NOT REPLACING KALLIE, DR ZAZUETA WAS AWARE.
[2020-05-21 12:59] LABS: CARBON DIOXIDE 17.5 mmol/L (21-32); POTASSIUM 5.5 mmol/L (3.5-5.1)
--- NOTE | 2020-05-21 13:04 | NUR ---
ZOSYN ADMINISTERED. PERIPHERAL IV INFILTRATED, REMOVED IV, CANNULA INTACT, NO BLEEDING ON IV SITE.
--- NOTE | 2020-05-21 13:11 | NUR ---
RECEIVED A CALL FROM PATIENT'S DAUGHTER TOMY, CONSTANTINO HUITRON WITH PATIENT'S CURRENT CONDITION, TOMY WAS AWARE. Addendum: 05/21/20 at 1317 by Ara Dang RN TOMY [phone], ALSO PROVIDED BROTHKAMILAH PAVON'S PHONE NUMBER [phone] CELL PHONE. ALSO NOTED PHONE NUMBER ON PATIENT'S CHART.
[2020-05-21 13:25] LABS: CREATININE 8.4 mg/dL (0.6-1.3)
--- NOTE | 2020-05-21 13:30 | NUR ---
CRITICAL LAB FOR BLOOD GLUCOSE 498, DR BAY MADE AWARE, ORDERED 10 UNIT HUMALOG SUBQ. WILL ADMINISTER.
--- NOTE | 2020-05-21 13:32 | NUR ---
CRITICAL LAB FOR BUN 170, CR 8.4, CA 7.6, DR ZAZUETA MADE AWARE, PATIENT WILL BE GETTING DIALYSIS TODAY AND TOMORROW.
--- NOTE | 2020-05-21 13:58 | NUR ---
10 UNIT HUMALOG VIA SUBQ FOR BLOOD GLUCOSE [address] BAY ORDERS.
--- NOTE | 2020-05-21 15:05 | NUR ---
DR STOUT IS ROUNDING ON PATIENT.
--- NOTE | 2020-05-21 15:23 | NUR ---
CHECKED FINGER STICK BLOOD GLUCOSE AND RECEIVED 246. PATIENT'S FAMILY IS BY WINDOW-SIDE FROM PARKING LOT SEEING PATIENT.
--- NOTE | 2020-05-21 15:39 | NUR ---
DR ANGUIANO IS ROUNDING ON PATIENT. ORDERED TO WEAN OFF SLOWLY ON PROPOFOL AND STARTED VERSED TO CORRECT HYPOTENSIVE CONCERN. SLOW FEEDING AT 10 ML/HR WHILE PRONE, AND WHILE SUPINE, GOAL RATE AT 40 ML/HR.
--- NOTE | 2020-05-21 16:58 | NUR ---
BLOOD GLUCOSE 187, 2 UNIT OF HUMALOG GIVEN. PATIENT IS IN DIALYSIS.
[2020-05-21] MEDS: MIDAZOLAM MDV 100 MG in NACL 0.9% 80 ML IV PRN (18:17)
--- NOTE | 2020-05-21 19:44 | NUR ---
ENDORSED PATIENT TO BOUNTY HUNTER NURSE FOR CONTINUITY OF CARE.
--- NOTE | 2020-05-21 20:00 | NUR ---
RECEIVED REPORT FROM DAY SHIFT RN. PT ON PRONE POSITION. PT ETT TO VENT. A/C VC FIO2 85%, TV 450, PEEP 8, RATE 24. RESPIRATION EVEN AND UNLABORED. CHEST EXPANSION SYMMETRICAL. ORAL MUCOSA PINK AND MOIST. SKIN WARM AND DRY. <3 CAPILLARY REFILL. PT HAS ACCESSES ON THE RIGHT UPPER ARM PICC, RIGHT IJ KALLIE CATH FOR HD. PT ON MORPHINE @ 2 MG/HR, PROPOFOL @ 15 MCG/KG/MIN, NS 20 ML/HR, LEVOPHED 18MCG/MIN, OGT IN PLACE. ARGUELOL CATHETER IN PLACE, PATENT, DRAINING TO GRAVITY. BED IN LOWEST POSITION, SIDE RAILS UP, ISOLATION PRECAUTIONS MAINTAINED. WILL CONTINUE TO MONITOR.
--- NOTE | 2020-05-21 23:45 | NUR ---
PT WAS PLACED ON SUPINE POSITION FOR RIJ KALLIE REINSERTION. DR. SHIRLEY AT BEDSIDE.
[2020-05-22] VITALS (26 sets, daily range): BP systolic 80–143; BP diastolic 30–56
--- NOTE | 2020-05-22 | NUR ---
DENNIS TO USE TROY SHIRLEY
--- NOTE | 2020-05-22 04:00 | NUR ---
MORNING CARE PROVIDED. ORAL CARE, ARGUELLO CARE. TURNED AND REPOSITIONED. PRESSURE AREAS OFF LOADED. WILL CONTINUE TO MONITOR
[2020-05-22] MEDS: NOREPINEPHRINE 4 MG in DEXTROSE 5% 250 ML IV PRN (04:17)
[2020-05-22] MEDS: PIPERACILLIN/TAZOBACTAM 2.25 GM in DEXTROSE 5% 50 ML IV SCH ×3 (05:52→21:00)
[2020-05-22 06:51] LABS: HEMATOCRIT 31.8 % (36-52); HEMOGLOBIN 10.6 g/dL (12.0-18.0); MEAN CORPUSCULAR HEMOGLOBIN 30 pg (27-31); MEAN CORPUSCULAR HGB CONC 33 g/dL (33-37); MEAN CORPUSCULAR VOLUME 89.5 fL (80-94); PLATELET COUNT (AUTO) 170 K/uL (140-450); RED BLOOD CELL COUNT(AUTO) 3.55 MIL/uL (4.20-6.10); RED CELL DISTRIBUTION WIDTH 14.6 % (11.6-13.7); WHITE BLOOD COUNT (AUTO) 23.4 K/uL (4.8-10.8)
[2020-05-22 07:45] LABS: ANION GAP 26.9 (8-16); CARBON DIOXIDE 21.4 mmol/L (21-32); POTASSIUM 5.3 mmol/L (3.5-5.1)
[2020-05-22 07:53] LABS: MAGNESIUM 2.7 mg/dL (1.8-2.4)
[2020-05-22] MEDS: BLOOD GLUCOSE MONITORING 1 DEV DEV FS SCH ×4 (08:00→21:00)
[2020-05-22] MEDS: DEXTROSE 50% 50 ML SYR IVP PRN ×2 (08:10→17:33)
--- NOTE | 2020-05-22 08:30 | NUR ---
BLOOD SUGAR 53, D50% AMP GIVEN
[2020-05-22] MEDS: NOREPINEPHRINE 16 MG in DEXTROSE 5% 250 ML IV PRN ×3 (08:31→22:02)
[2020-05-22] MEDS: INSULIN LANTUS 100 UNITS/ML 10 ML VIAL SUBQ SCH (09:00)
--- NOTE | 2020-05-22 09:30 | NUR ---
BLOOD GLUCOSE 153 AFTER D50%
[2020-05-22] MEDS: ASCORBIC ACID 500 MG TAB PO SCH (09:43)
[2020-05-22] MEDS: PANTOPRAZOLE 40 MG INJ VIAL IVP SCH (09:43)
[2020-05-22] MEDS: ZINC SULF 220 MG CAP PO SCH (09:43)
[2020-05-22 10:20] LABS: CREATININE 7.3 mg/dL (0.6-1.3)
[2020-05-22 10:21] LABS: PHOSPHORUS 11.2 mg/dL (2.5-4.9)
--- NOTE | 2020-05-22 11:44 | NUR ---
BP 75/27, PROPOFOL STOPPED, DR STEVENS PAGED AND CALLED BACK, ORDERS FOR NEOSYNEPHRINE AND VASOPRESSIN RECEIVED
[2020-05-22] MEDS: PROPOFOL 1000 MG/100 ML PREMIX 100 ML IV PRN (13:31)
[2020-05-22] MEDS: PHENYLEPHRINE 40 MG in NACL 0.9% 250 ML IV PRN ×3 (13:32→21:59)
[2020-05-22] MEDS: NACL 0.9% 1,000 ML IV SCH (14:55)
[2020-05-22] MEDS: MORPHINE SULFATE 50 MG in NACL 0.9% 45 ML IV PRN (16:28)
[2020-05-22] MEDS ORDERED: PHENYLEPHRINE 10 MG/ML VIAL ONE (17:15)
--- NOTE | 2020-05-22 17:20 | NUR ---
BLOOD SUGAR 45, D 50% GIVEN
--- NOTE | 2020-05-22 18:20 | NUR ---
BLOOD SUGAR 134
[2020-05-22] MEDS: VASOPRESSIN 20 UNITS in NACL 0.9% 250 ML IV PRN (22:00)
[2020-05-23] VITALS (17 sets, daily range): BP systolic 90–124; BP diastolic 36–86
[2020-05-23] MEDS: PHENYLEPHRINE 40 MG in NACL 0.9% 250 ML IV PRN ×2 (02:30→07:09)
[2020-05-23] MEDS: PIPERACILLIN/TAZOBACTAM 2.25 GM in DEXTROSE 5% 50 ML IV SCH (05:00)
[2020-05-23] MEDS ORDERED: VASOPRESSIN 20 UNITS/ML VIAL ONE (05:54)
[2020-05-23] MEDS: BLOOD GLUCOSE MONITORING 1 DEV DEV FS SCH (07:03)
[2020-05-23] MEDS: DEXTROSE 50% 50 ML SYR IVP PRN (07:04)
[2020-05-23] MEDS: VASOPRESSIN 20 UNITS in NACL 0.9% 250 ML IV PRN (07:06)
[2020-05-23] MEDS: ZINC SULF 220 MG CAP PO SCH (08:11)
[2020-05-23] MEDS: PANTOPRAZOLE 40 MG INJ VIAL IVP SCH (08:11)
[2020-05-23] MEDS: INSULIN LANTUS 100 UNITS/ML 10 ML VIAL SUBQ SCH (08:11)
[2020-05-23] MEDS: ASCORBIC ACID 500 MG TAB PO SCH (08:11)
--- NOTE | 2020-05-23 09:10 | NUR ---
BLOOD SUGAR 91, AM MEDS GIVEN, RESIDUAL 50ML, TEMP 98.0 ORALLY.
[2020-05-23] MEDS: MIDAZOLAM MDV 100 MG in NACL 0.9% 80 ML IV PRN (11:09)
--- NOTE | 2020-05-23 11:18 | NUR ---
PER DIRECTOR MEDIA, PT IN INTERMITTENT V-FIB NON SUSTAINED, PT PLACED ON DEFIBRILATOR. CURRENTLY TACHYCARDIA 100-110
--- NOTE | 2020-05-23 11:20 | NUR ---
ASYSTOLE ON THE MONITOR, NO BP, NO PULSE, CODE BLUE CALLED, CHEST COMPRESSION STARTED. PLEASE SEE CODE BLUE RECORDS.
--- NOTE | 2020-05-23 11:25 | NUR ---
PATIENT'S DAUGHTER TOMY NOTIFIED THAT PATIENT IS CODING AT THIS TIME. TOMY WAS AWARE. PER TOMY, SHE WILL NOTIFY HER BROTHER SAVANAH AND MOTHER NOW.
--- NOTE | 2020-05-23 11:29 | NUR ---
PATIENT'S DAUGHTER TOMY NOTIFIED THAT PATIENT HAS , TOMY WAS AWARE. PER TOMY, SHE WILL NOTIFY HER FAMILY.
[2020-05-23 11:47] LABS: BASOPHILS # (AUTO) 0.1 K/uL (0.00-0.22); BASOPHILS % (AUTO) 0.5 % (0.0-2.0); EOSINOPHILS % (AUTO) 0.1 % (0.0-4.0); HEMATOCRIT 28.7 % (36-52); HEMOGLOBIN 9.5 g/dL (12.0-18.0); LYMPHOCYTES # (AUTO) 0.2 K/uL (2.0-11.5); LYMPHOCYTES % (AUTO) 0.8 % (20.5-51.1); MEAN CORPUSCULAR HEMOGLOBIN 30 pg (27-31); MEAN CORPUSCULAR HGB CONC 33 g/dL (33-37); MEAN CORPUSCULAR VOLUME 90.7 fL (80-94); MONOCYTES % (AUTO) 0.3 % (1.7-9.3); NEUTROPHILS # (AUTO) 19.1 K/uL (1.8-7.7); NEUTROPHILS % (AUTO) 98.3 % (42.2-75.2); PLATELET COUNT (AUTO) 148 K/uL (140-450); RED BLOOD CELL COUNT(AUTO) 3.17 MIL/uL (4.20-6.10); RED CELL DISTRIBUTION WIDTH 15.4 % (11.6-13.7); WHITE BLOOD COUNT (AUTO) 19.4 K/uL (4.8-10.8)
--- NOTE | 2020-05-23 12:59 | NUR ---
CALLED [employer] [phone] TO REPORT , SPOKE WITH AYSHA, PROVIDED ALL REQUESTED INFORMATION. PER AYSHA, SHE WILL FORWARD THE MESSAGE TO THE GAS APPLIANCE ADJUSTER TO CALL BACK. AWAITING FOR [employer]ANCE AD[employer]ER TO CALL BACK.
--- NOTE | 2020-05-23 13:03 | NUR ---
CALLED [facility] [phone] AND SPOKE WITH MELVIN, PROVIDED REQUEST INFORMATION. PER MELVIN, THE BODY WILL NOT BE SPUD DRILLER BY [facility], PROVIDED REFERENCE#[id number].
--- NOTE | 2020-05-23 14:39 | NUR ---
RECEIVED A CALL BACK FROM [employer], [facility] NAME Daphney CHU OFFICE # [phone], THIS IS NOT A [employer] CASE AND BODY MAY RELEASE TO FAMILY.
--- NOTE | 2020-05-23 14:45 | NUR ---
NOTIFIED PATIENT' S DAUGHTER TOMY THAT [employer] HAS RELEASED THE BODY TO THE FAMILY AND EXPLAINED THAT THE HOSPITAL DOES NOT HAVE A MORGUE, TOMY WAS AWARE. PER TOMY, THEY ARE WORKING ON THE ARRANGEMENT AND WILL CONTACT US ONCE THEY ARE FINALIZED WITH PLAN.
== END 2020-05-23 11:25 | DRG 870 ==
LOC: MED 10:10 → MTU 13:57 → MMU 05-10 19:58
PROVIDERS: ADMIT Emergency Medicine; ATTEND Emergency Medicine
PROC: 5A1D70Z Performance of Urinary Filtration, Intermittent, Less than 6 Hours Per Day (ICD-10-PCS; 2020-05-11)
PROC: 02HV33Z Insertion of Infusion Device into Superior Vena Cava, Percutaneous Approach (ICD-10-PCS; 2020-05-11)
PROC: B548ZZA Ultrasonography of Superior Vena Cava, Guidance (ICD-10-PCS; 2020-05-11)
PROC: 5A1D70Z Performance of Urinary Filtration, Intermittent, Less than 6 Hours Per Day (ICD-10-PCS; 2020-05-12)
PROC: 5A1D70Z Performance of Urinary Filtration, Intermittent, Less than 6 Hours Per Day (ICD-10-PCS; 2020-05-13)
PROC: 5A1D70Z Performance of Urinary Filtration, Intermittent, Less than 6 Hours Per Day (ICD-10-PCS; 2020-05-16)
PROC: 5A1D70Z Performance of Urinary Filtration, Intermittent, Less than 6 Hours Per Day (ICD-10-PCS; 2020-05-18)
PROC: 5A1955Z Respiratory Ventilation, Greater than 96 Consecutive Hours (ICD-10-PCS; principal; 2020-05-20)
PROC: 0BH17EZ Insertion of Endotracheal Airway into Trachea, Via Natural or Artificial Opening (ICD-10-PCS; 2020-05-20)
PROC: 5A1D70Z Performance of Urinary Filtration, Intermittent, Less than 6 Hours Per Day (ICD-10-PCS; 2020-05-20)
PROC: 5A1D70Z Performance of Urinary Filtration, Intermittent, Less than 6 Hours Per Day (ICD-10-PCS; 2020-05-21)
PROC: 02HV33Z Insertion of Infusion Device into Superior Vena Cava, Percutaneous Approach (ICD-10-PCS; 2020-05-21)
PROC: 02PYX3Z Removal of Infusion Device from Great Vessel, External Approach (ICD-10-PCS; 2020-05-21)
PROC: 5A1D70Z Performance of Urinary Filtration, Intermittent, Less than 6 Hours Per Day (ICD-10-PCS; 2020-05-22)
PROC: 5A1D70Z Performance of Urinary Filtration, Intermittent, Less than 6 Hours Per Day (ICD-10-PCS; 2020-05-23)
DX: A41.89 Other specified sepsis (principal); E11.10 Type 2 diabetes mellitus with ketoacidosis without coma; U07.1 COVID-19; J12.89 Other viral pneumonia; R65.21 Severe sepsis with septic shock; E43 Unspecified severe protein-calorie malnutrition; N17.0 Acute kidney failure with tubular necrosis; J80 Acute respiratory distress syndrome; G93.40 Encephalopathy, unspecified; E83.39 Other disorders of phosphorus metabolism; E83.41 Hypermagnesemia; E11.65 Type 2 diabetes mellitus with hyperglycemia; E87.6 Hypokalemia; Z99.2 Dependence on renal dialysis; Z90.49 Acquired absence of other specified parts of digestive tract; Z68.29 Body mass index [BMI] 29.0-29.9, adult
CPT/HCPCS: 31500; 36415; 36600; 71045; 80048; 80053; 81001; 82550; 82553; 82728; 82803; 82948; 83036; 83605; 83615; 83735; 83880; 84100; 84436; 84439; 84443; 84479; 84484; 85025; 85379; 85384; 85610; 85651; 85730; 86140; 87040; 87081; 87086; 87420; 87804; 90935; 93005; 94002; 94003; 96365; 99291; C9113; J0696; J1100; J1644; J1815; J2001; J2060; J2250; J2270; J2370; J2543; J2704; J3480; J3490; J7030; J7060; U0003